=== PATIENT | male | born 1970 | race Caucasian/White ===

== ENCOUNTER 2024-10-08 14:36 | Emergency (ER) | payer OTHER, SELFPAY ==
[2024-10-08 14:37] VITALS: BP 125/90; PULSE 73; RESP 16; TEMP 36.4; O2SAT 100
[2024-10-08 14:44] VITALS: PULSE 75
[2024-10-08 14:45] VITALS: BP 137/87; PULSE 74; RESP 16
[2024-10-08 15:00] VITALS: BP 136/83; PULSE 71; RESP 20; O2SAT 100
--- NOTE | 2024-10-08 15:00 | ED.ARRPALP ---
HPI - Arrhythmia/Palpitations General Chief Complaint: Neuro Symptoms/Deficit Stated Complaint: Lips Tiggling/[place] Like Passing out Time Seen by Provider: 10/08/24 14:40 Source: patient Mode of arrival: ambulatory Limitations: no limitations History of Present Illness HPI narrative: 53-year-old male With history of hypertension, diabetes, high cholesterol presents with complaint of palpitations that started approximately 1 hour prior to arrival. Patient states that he is having intermittent lightheaded has constant feeling numbness and tingling to lower lip with numbness and tingling to right cheek. Patient reports history of AL approximately 15 years ago. Had stent placed for 100% blockage. 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 denies chest pain, shortness of breath. All systems reviewed and negative except as noted above. Related Data Home Medications ?Medication ?Instructions ?Recorded ?Confirmed ?Last Taken ?Type atorvastatin .ROUTE 10/08/24 Unknown History lisinopril 2.5 mg tablet mg 10/08/24 Unknown History metformin 500 mg tablet,extended mg PO 10/08/24 Unknown History release 24 hr metoprolol succinate 25 mg mg PO 10/08/24 Unknown History tablet,extended release 24 hr Allergies Allergy/AdvReac Type Severity Reaction Status Date / Time No Known Allergies Allergy Verified 10/08/24 14:51 Review of Systems Review of Systems: CONSTITUTIONAL: Denies fever, chills, or sweats. EYES: Denies visual changes, redness, or discharge. ENT: Denies rhinorrhea, congestion, sore throat, or otalgia. CARDIOVASCULAR: Denies chest pain . Reports palpitations . Denies edema. RESPIRATORY: Denies cough or dyspnea. GASTROINTESTINAL: Denies abdominal pain, nausea, vomiting, or diarrhea. GENITOURINARY: Denies dysuria or hematuria. SKIN: Denies rash or itching. MUSCULOSKELETAL: Denies back pain, joint pain, or myalgia. NEUROLOGIC: Denies headache, numbness, or weakness. reports lip and right cheek tingling/numbness. PSYCHIATRIC: Denies anxiety or depression. All other systems reviewed are negative, except as documented in HPI. PMFSH Comments At time of signature, agree with nursing past medical, surgical, social and family history. There is no relevant family history pertinent to the presenting complaint. Exam Narrative: GENERAL: This is a well-nourished, well-developed patient, in no apparent distress. HEAD: normocephalic, atraumatic. EYES: PERRL. Sclera clear/white. Vision is grossly intact. extraocular motions intact EARS: External ears normal NOSE: External nose normal NECK: Neck supple, non-tender without lymphadenopathy, masses or thyromegaly. CARDIOVASCULAR: Regular rate and rhythm without murmurs, gallops, or rubs. RESPIRATORY: Clear to auscultation. Breath sounds equal bilaterally. No wheezes, rales, or rhonchi. SKIN: warm, Dry, intact with no suspicious lesions or rash, good texture and turgor. NEURO: awake, alert, and oriented to person, place and time. There were no obvious focal neurologic abnormalities. normal speech. 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 EXTREMITIES: No joint tenderness, effusion, or edema noted. Course Course Level of Care: Express Care Visit Vital Signs Vital signs: Vital Signs Temperature 36.4 C 10/08/24 14:37 Pulse Rate 73 10/08/24 14:37 Respiratory Rate 16 10/08/24 14:37 Blood Pressure 125/90 10/08/24 14:37 Pulse Oximetry 100 10/08/24 14:37 Oxygen Delivery Room Air 10/08/24 14:37 Temperature 36.4 C 10/08/24 14:37 Pulse Rate 73 10/08/24 14:37 Respiratory Rate 16 10/08/24 14:37 Blood Pressure 125/90 10/08/24 14:37 Pulse Oximetry 100 10/08/24 14:37 Oxygen Delivery Room Air 10/08/24 14:37 reviewed Transfer Transfered to: [facility] Transportation: BLS Transfer rationale: palpitations, lip numbness, lightheaded. AL 15 yrs ago Accepting physician: MITRA Vazquez MDM - Arrhythmia/Palpitations MDM Narrative Medical decision making narrative: transferring patient to [facility] ER for further evaluation of his symptoms. Patient agrees with plan of care. Please be advised this is a medical document. It is intended for qxcs-ve-msmd communication. It is written in medical language and may contain unfamiliar abbreviations or verbiage. Medical documents are intended to carry relevant information, facts as evident, and the clinical opinion of the practitioner at the time of the encounter. This report may have been done utilizing a voice recognition system. Attempts have been made to correct errors. However, there may be uncorrected grammatical, spelling, and recognition errors present. The file time of this note does not necessarily represent the time of service. Discharge Plan Discharge Clinical Impression: Heart palpitations, Lip numbness Patient Disposition: Acute Care Hospital Condition: Stable Patient Language: Citizen Of [place] Prescriptions: No Action metoprolol succinate 25 mg tablet extended release 24 hr PO metformin 500 mg tablet extended release 24 hr PO lisinopril 2.5 mg tablet atorvastatin .ROUTE Follow-up/Referrals: UNKNOWN,DOCTOR [Primary Care Provider] - Time of Disposition: 15:00
--- NOTE | 2024-10-08 15:30 | ECG_ITS ---
Test Date: 2024-10-08 14:42:00 Measurements Intervals [place] Rate: 69 P: -2 ME: 167 QRS: -24 QRSD: 145 T: 8 QT: 407 QTc: 437 Interpretive Statements SINUS RHYTHM WITH OCCASIONAL VENTRICULAR PREMATURE COMPLEXES RIGHT BUNDLE BRANCH BLOCK INFERIOR INFARCT, AGE INDETERMINATE BASELINE ARTIFACT- I, II, III, AVR, AVL, AVF ABNORMAL ECG No previous ECG available for comparison Electronically Signed On 10-09-2024 09:17:17 CDT by Richy Cristina D.O.
--- OUTSIDE RECORDS SUMMARY | 2024-10-08 16:25 | XMS_ITS | Encounter Summary ---
Author Organization [facility] Address [address] [place] [address] Phone Care Team Providers Care Tank Setter Name Role Phone Slim Ordaz MD Primary Care Provider [phone] Encounter Details Date Type Department Care Team (Late st Contact Info) Description 08/28/2020 Telephone [facility] Cardiology [address] [facility] 8th [place] [address] [place] [id number] Nithin March MD [address] 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
--- OUTSIDE RECORDS SUMMARY | 2024-10-08 16:25 | XMS_ITS | Clinical Summary ---
Author Organization [facility] Address [address] [place] [address] Phone Care Team Providers Care Supervisor Film Processing Name Role Phone NATHAN ORDAZ MD Primary Care Provider [phone] ANGELINA Lopez, DARRELL Menard [phone] Reason for Visit and Chief Complaint referred by Dr. Ordaz, visit for: Lesion on scalp Plan of Treatment Excision under local anesthesia. PROCEDURE: The area is cleansed with hibiclens and localized with 3ml of 1% lidocaine with epinephrine. An oval incision made 1.7cm in width and 4.5cm in length and carried into the subcutaneous tissue. The lesion is removed completely and sent for pathology. The incision is closed with a running suture of 4-0 nylon. Neosporin ointment applied. The patient is given instructions for care and an appointment for 1 week for suture removal. - Last Documented On 10/19/2017 4:03PM ; [facility] Assessments Includes: Assessments from this encounter Findings Benign skin lesion right scalp. - Last Documented On 10/19/2017 4:03PM ; [facility] Medical Equipment - Implanted Devices Includes: Current Devices No Medical Equipment Recorded Medications Includes: Medications discussed during this encounter and other current Medications Current Medications (continue as prescribed) Metoprolol Succinate ER 25MG Oral Tablet Extended Release 24 Hour 08/02/2018 Provider: DARRELL ORDAZ M.D. Diagnosis: TAKE 1/2 TABLET BY MOUTH ONCE DAILY NEED OFFICE VISIT. Last Documented On 08/02/2018 1:48PM By NATHAN ORDAZ MD ; [facility] Lisinopril 2.5MG Oral Tablet 08/02/2018 Provider: DARRELL ORDAZ M.D. Diagnosis: TAKE 1 TABLET BY MOUTH ONCE DAILYNeed Office Vis it. Last Documented On 08/02/2018 4:34PM By NATHAN ORDAZ MD ; [facility] Atorvastatin Calcium 80MG Oral Tablet 08/02/2018 Pro vider: DARRELL ORDAZ M.D. Diagnosis: One tablet dailyNeed Office Visit. Last Documented On 08/02/2018 4:34PM By NATHAN ORDAZ MD ; [facility] Medications Administered Includes: Administered Medications from this encounter No Administered Medications Recorded Vital Signs Includes: Vital Signs from this encounter Vital Name 10/19/2017 03:24P Blood Pressure Sitting L 116/62 Pulse Rate-Sitting (bpm) 64 Respiration Rate (breaths/min) 20 Temp-Tympanic (F) 98 Height (in) 69 Weight (lb) 202 Body Mass Index (kg/m2) 29.8 Body Surface Area (m2) 2.1 Last Documented: On 10/19/2017 3:25PM ; [facility] Results Includes: Results discussed during this encounter No Results Recorded For Specified Dates History of Present Illness Includes: History of Present Illness from this encounter NOAH ORTEGA is a 46 year old male. Atypical mole growing on the right scalp. Occasionally gets irritated by his comb. Would like it removed. - Medication list reviewed. 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 Last Documented On 8 2:59PM ; [facility] Medical History Includes: Medical History addressed during this encounter Description Last Updated History of coronary artery disease 09/30 Last Documented On 8 2:59PM ; [facility] History of essential hypertension 2017 Last Documented On 8 2:59PM ; [facility] History of hyperlipidemia 09/30/2017 Last Documented On 8 2:59PM ; [facility] Family History Includes: Family History addressed during this encounter Description Last Updated Paternal history of coronary artery dise ase 09/30/2017 Last Documented On 8 2:59PM ; [facility] 4 children 09/30/2017 Last Documented On 8 2:59PM ; [facility] Maternal history of breast cancer Mother 09/30/2017 Last Documented On 8 2:59PM ; [facility] Paternal history of diabetes mellitus Fa ther-Alive 09/30/2017 Last Documented On 8 2:59PM ; [facility] Paternal history of heart disease Father -heart attack -alive 09/30/2017 Last Documented On 8 2:59PM ; [facility] Paternal history of stroke syndrome Gran dfather-stroke 09/30/2017 Last Documented On 8 2:59PM ; [facility] Review of Systems Includes: Review of Systems from this encounter No Review of Systems Recorded Mental Status Includes: Mental Status from this encounter No Mental Status Recorded Functional Status Includes: Functional Status from this encounter No Functional Status Recorded Physical Exam Includes: Physical Exam from this encounter Allergies Includes: Active Allergies No Known Allergies Encounters Encounter Provider Location Date Check-In Time Check-Out Time Diagnosis CONSULTATION MIRI MARKS DO [facility] 10/20/19 18 3:15PM 3:57PM Assessment [use For S.o.a.p. Note Free Text] Insurance Includes: Active Insurance Policies Plan Name Member ID Group # Subscriber Relationship Effect javid Dates 1 - [facility] [id number] NIK pearson Clinical Notes Includes: Clinical Notes from this encounter No Clinical Notes Recorded
--- OUTSIDE RECORDS SUMMARY | 2024-10-08 16:25 | XMS_ITS | Encounter Summary ---
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 Gender Identity Not on file Sexual Orientation Not on file documented as of this encounter Plan of Treatment Not on file documented as of this encounter Procedures Procedure Name Priority Date/Time Associated Diagnosis Comments SCAN - LABS 04/27/2020 documented in this encounter Results * SCAN - LABS (04/27/2020) us Provider Scanning Final Result documented in this encounter Visit Diagnoses Not on filedocumented in this encounter Care Teams Swabber Relationship Specialty Start Date End Date Slim Ordaz MD [address] [place] [id number] PCP - General Internal Medicine 08/22/18 documented as of this encounter
--- OUTSIDE RECORDS SUMMARY | 2024-10-08 16:26 | XMS_ITS | Encounter Summary ---
Author Organization [facility] Care Team Providers Care Hat Block Maker Name Role Phone Kilo Lozano MD Primary Care Provider [phone] Nithin March MD Unavailable [phone] Encounter Details Date Type Department Care Team (Latest Contact Info) Description 10/08/2024 Travel Social History Tobacco Use Types Packs/Day Years Used Date Smoking Tobacco: Never Smokeless Tobacco: Never Alcohol Use Standard Drinks/Week Comments Not Currently 0 (1 standard drink = 0.6 oz pur e alcohol) [facility] Utilities Answer Date Recorded In the past 12 months has [employer] electric, gas, oil, or water company threatened to shut off services in your home? Patient declined 12/22/2023 Social Connection and Isolation Panel [NHANES] A nswer Date Recorded In a typical week, how many times do you talk on the phone with family, friends, or neighbors? Patient declined 12/22/2023 How often do you get togethe r with friends or relatives? Patient declined 12/22/2023 How often do you attend scientologist or hoahaoism serv ices? Patient declined 12/22/2023 Do you belong to any clubs o r organizations such as scientologist groups, unions, fraternal or athletic groups, or school groups? Patient declined 12/22/2023 How often do you attend meet ings of the clubs or organizations you belong to? Patient declined 12/22/2023 Are you , , di vorced, , never , or living with a partner? Patient declined 12/22/2023 AUDIT-C Answer Date Recorded Q1: How often do you have a drink containing alc ohol? Patient declined 12/22/2023 Q2: How many drinks containi ng alcohol do you have on a typical day when you are drinking? Patient declined 12/22/2023 Q3: How often do you have si x or more drinks on one occasion? Patient declined 12/22/2023 Overall Financial Resource Strain (CARDIA) Answe r Date Recorded How hard is it for you to pa y for the very basics like food, housing, medical care, and heating? Hard 12/22/2023 PHQ-2 Answer Date Recorded Total Score - Questions 1-9 0 11/26 [facility] - Occupational Stress Questionnaire Answer Date Recorded Do you feel stress - tense, restless, nervous, or anxious, or unable to sleep at night because your mind is troubled all the time - these days? Patient declined 12/22/2023 Exercise Vital Sign Answer Date Recorde d On average, how many days pe r week do you engage in moderate to strenuous exercise (like a brisk walk)? Patient declined On average, how many minutes do you engage in exercise at this level? Patient declined 12/22/2023 Hunger Vital Sign Answer Date Recorded Within the past 12 months, y ou worried that your food would run out before you got the money to buy more. Patient declined Within the past 12 months, t he food you bought just didn't last and you didn't have money to get more. Patient declined PRAPARE - Transportation Answer Date Re corded In the past 12 months, has l ack of transportation kept you from medical appointments or from getting medications? Patient declined 12/22/2023 In the past 12 months, has l ack of transportation kept you from meetings, work, or from getting things needed for daily living? Patient declined 12/22/2023 Housing Stability Vital Sign Answer Abdulkadir e Recorded In the last 12 months, was t here a time when you were not able to pay the mortgage or rent on time? Patient declined 12/22/19 24 Number of Times Moved in the Last Year Not on fi le 12/22/2023 At any time in the past 12 m [place], were you homeless or living in a nursing home (including now)? Patient declined 12/22/2023 Education Answer Date Recorded What is the highest level of school you have completed or the highest degree you have received? Bachelor's degree (e.g., BA, AB, BS) 12/10/2022 Sex and Gender Information Value Date Recorded Sex Assigned at Not on file Legal Sex Male 5:38 PM CDT Gender Identity Not on file Sexual Orientation Not on file documented as of this encounter Plan of Treatment Upcoming Encounters Date Type Department Care Team (Late st Contact Info) Description 12/24/2024 4:15 PM CDT Office Visit [facility] - [place] [address] [place] [address] Kilo Lozano MD [address] [place] [address] documented as of this encounter Visit Diagnoses Not on filedocumented in this encounter Additional Health Concerns Assessment Noted Time PHQ-9 Depression Total Score: 0 12/23/19 24 4:22 PM CDT documented as of this encounter Care Teams Hat Block Maker Relationship Specialty Start Date End Date Kilo Lozano MD [address] [place] [address] PCP - General Internal Medicine 03/23/21 Nithin March MD [address] [place] [address] Consulting Physician Cardiovascular Disease - Cardiology 03/23/21 documented as of this encounter
--- OUTSIDE RECORDS SUMMARY | 2024-10-08 16:26 | XMS_ITS | Clinical Summary ---
Author Organization [facility] Address [address] [place] [address] Care Team Providers Care Tumbler Tender Name Role Phone Slim Ordaz MD Primary Care Provider [phone] Allergies No known active allergies Medications coenzyme Q10 100 mg capsule Take 100 mg by mouth daily. Active esomeprazole DR (NexIUM) 20 mg capsule Take 20 mg by mouth daily before breakfast. Active aspirin 81 mg chewable tablet Take 81 mg by mouth daily. Active atorvastatin (LIPITOR) 80 mg tablet Take 1 tablet (80 mg total) by mouth daily 90 tablet 3 01/11/2022 Active lisinopriL (PRINIVIL,ZESTRI L) 2.5 mg tablet Take 1 tablet (2.5 mg total) by mouth daily 90 tablet 3 01/11/2022 Active metoprolol XL (TOPROL-XL) 25 mg extended release tablet Take 1 tablet (25 mg total) by mouth daily 90 tablet 3 01/11/2022 Active Active Problems Problem Noted Date Diagnosed Date Coronary artery disease invo lving sioux coronary artery of sioux heart without angina pectoris 09/01/2020 Cardiomyopathy, ischemic 09/01/2020 Hypertension 09/01/2020 Hyperlipidemia 09/01/2020 Family History Medical History Relation Name Comments Heart attack Father Relation Name Status Comments Father Social History Tobacco Use Types Packs/Day Years Used Date Smoking Tobacco: Never Smokeless Tobacco: Never Personal Safety Answer Date Recorded Getting School Help Needed Not on file 09/10 Sex and Gender Information Value Date Recorded Sex Assigned at Not on file 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 Gender Identity Not on file Sexual Orientation Not on file Obstetrics History Last Filed Vital Signs Vital Sign Reading Time Taken Comments Blood Pressure 107/62 10/25/2021 3:30 PM CDT Pulse 66 10/25/2021 3:30 PM CDT Temperature 36.4 C (97.5 F) 10/25/2021 12:38 PM CDT Respiratory Rate 19 10/25/2021 3:30 PM CDT Oxygen Saturation 100% 10/25/2021 3:30 PM CDT Inhaled Oxygen Concentration - - Weight 77.1 kg (170 lb) 11/24/2021 3:29 PM CDT Height 175.3 cm (5' 9 ) 11/24/2021 3:29 PM CDT Body Mass Index 25.1 11/24/2021 3:29 PM CDT Plan of Treatment Health Maintenance Due Date Last Done Comments Albumin Creatinine Ratio, Urine 1971 Colon Cancer Screening-Colonoscopy 1971 Depression Screening 1971 Hemoglobin A1C 1971 Hepatitis C Screening 1971 Prostate Cancer Screening-PSA 1971 Dilated Eye Exam 1971 Foot Exam 1971 DTaP/Tdap/Td Vaccine (1 - Tdap) 10/21/1982 Hepatitis B Screening 10/21/1989 Regular Well Visit/Exam 18-64 10/21/1989 Pneumococcal vaccine <65 (1 of 2 - PCV) 10/21/1990 Zoster Vaccine (1 of 2) 10/21/2021 eGFR 10/25/2022 10/25/2021 Covid-19 Vaccine ( season) 02/26/202402/2021, 03/07/2021 Lipid Panel 12/25/2024 12/26/2023 Influenza Vaccine (Season Ended) 2025 Procedures Procedure Name Priority Date/Time Associated Diagnosis Comments EGFR STAT 10/25/2021 2:14 PM CDT from Last 3 Months or Most Recently Relevant to Health Maintenance Results * eGFR (10/25/2021 2:14 PM CDT) eGFR 110 mL/min/1. 73 m2 ALEJANDRO GRIFFITH (ANNMARIE) Comment: Interpretive Data Reference Interval Normal >/= 90 mL/min/1.73m2 Mildly decreased* 60 - 89 mL/min/1.73m2 Mildly to moderately decreased 45 - 59 mL/min/1.73m2 Moderately to severely decreased 30 - 44 mL/min/1.73m2 Severely decreased 15 - 29 mL/min/1.73m2 Kidney Failure < 15 mL/min/1.73m2 *Relative to young adult level Estimated glomerular filtration rate is determined by the 2020 CKD-EPI equation recommended by the National Kidney Foundation (A Unifying Approach to GFR Estimation: Recommendations of the NKF-ASK Task Force on Reassessing the Inclusion of Race in Diagnosing Kidney Disease, JASN 2020). The CKD-EPI equation should not be used for patients with unstable renal function and has not been validated in children and those over 70. Current interpretive data was last reviewed 2021. Blood 10/25/2021 2:14 PM CDT 10/25/2021 2:21 PM CDT us Severo Gregorio MD LAB BLOOD ORDERABLES Final Result [facility] ([facility]) [facility] Department [place] [address] from Last 3 Months or Most Recently Relevant to Health Maintenance Care Teams Tumbler Tender Relationship Specialty Start Date End Date Slim Ordaz MD [address] [place] [id number] PCP - General Internal Medicine 08/22/18
--- OUTSIDE RECORDS SUMMARY | 2024-10-08 16:26 | XMS_ITS | Encounter Summary ---
Author Organization [facility] Address [address] [place] [address] Phone Care Team Providers Care Hand Screen Printer Name Role Phone Kilo Lozano MD Primary Care Provider [phone] Nithin March MD Unavailable [phone] Reason for Visit * Reason Comments Medication Refill Encounter Details Date Type Department Care Team (Late st Contact Info) Description 12/01[facility]2023 [facility] [place] [address] [place] [address] Kilo Lozano MD [address] [place] [address] Medication Refill Social History Tobacco Use Types Packs/Day Years Used Date Smoking Tobacco: Never Smokeless Tobacco: Never Alcohol Use Standard Drinks/Week Comments Not Currently 0 (1 standard drink = 0.6 oz pur e alcohol) PHQ-2 Answer Date Recorded Total Score - Questions 1-9 0 02/26 Education Answer Date Recorded What is the highest level of school you have completed or the highest degree you have received? Bachelor's degree (e.g., BA, AB, BS) 12/10/2022 Sex and Gender Information Value Date Recorded Sex Assigned at Not on file Legal Sex Male 5:38 PM CDT Gender Identity Not on file Sexual Orientation Not on file documented as of this encounter Miscellaneous Notes * Telephone Encounter - Krishna Arechiga RN - 12/01/2023 8:16 AM CDT Medication(s) refilled and signed per [facility] Chronic Medication Refill Standing Order for Pediatricand Adult Patients. Requested Prescriptions Pending Prescriptions Disp Refills lisinopril (PRINIVIL, ZESTRIL) 2.5 MG Tablet [Pharmacy Med Name: Lisinopril 2.5 MG Oral Tablet] 90 Tablet 0 Sig: Take 1 tablet by mouth once daily ADRIANA Inhibitors Protocol Passed - 12/01/2023 6:14 AM Passed - Serum potassium on record in past 12 months POTASSIUM Date Value Ref Range Status 12/20/2022 3.9 3.5 - 5.1 mmol/L Final Passed - Blood pressure on record in past 12 months Clinician-entered: BP Readings from Last 3 Encounters: 12/17/22 110/70 03/23/21 100/70 Patient-entered: No data recorded Passed - Visit with relevant provider in past 12 months or upcoming 90 days Recent Visits Date Type Provider Dept 12/17/22 Office Visit Kilo Lozano MD [facility] Showing recent visits within past 365 days and meeting all other requirements Future Appointments Date Type Provider Dept 12/23/23 Appointment Kilo Lozano MD [facility] Showing future appointments within next 90 days and meeting all other requirements Passed - GFR on record in past 12 months GFR, EST. NONAFRICAN Date Value Ref Range Status 12/20/2022 >60 >=60 Final atorvastatin (LIPITOR) 80 MG Tablet [Pharmacy Med Name: Atorvastatin Calcium 80 MG Oral Tablet] 90 Tablet 0 Sig: Take 1 tablet by mouth once daily Hmg CoA Reductase Inhibitors Protocol Passed - 12/01/2023 6:14 AM Passed - Visit with relevant provider in past 12 months or upcoming 90 days Recent Visits Date Type Provider Dept 12/17/22 Office Visit Kilo Lozano MD [facility] Showing recent visits within past 365 days and meeting all other requirements Future Appointments Date Type Provider Dept 12/23/23 Appointment Kilo Lozano MD [facility] Showing future appointments within next 90 days and meeting all other requirements Passed - Lipid panel in past 12 months LDL Date Value Ref Range Status 12/20/2022 Final Comment: Unable to calculate LDL when Triglycerides are greater than 400. Direct measurement of LDL is available upon request as a separate test. HDL CHOLESTEROL Date Value Ref Range Status 12/20/2022 36.3 (L) >40 mg/dL Final CHOLESTEROL Date Value Ref Range Status 12/20/2022 230 (H) <=200 mg/dL Final TRIGLYCERIDES Date Value Ref Range Status 12/20/2022 416 (H) <150 mg/dL Final VLDL Date Value Ref Range Status 12/20/2022 Final Comment: Cannot be calculated due to Hypertriglyceridemia. CHOL/HDL RATIO Date Value Ref Range Status 12/20/2022 6.3 (H) 0.0 - 4.4 Final NON-HDL CHOLESTEROL Date Value Ref Range Status 12/20/2022 193.7 (H) <130 mg/dL Final Passed - CMP in past 12 months SODIUM Date Value Ref Range Status 12/20/2022 138 136 - 144 mmol/L Final POTASSIUM Date Value Ref Range Status 12/20/2022 3.9 3.5 - 5.1 mmol/L Final CHLORIDE Date Value Ref Range Status 12/20/2022 102 100 - 110 mmol/L Final CO2, VENOUS Date Value Ref Range Status 12/20/2022 26 22 - 32 mmol/L Final ANION GAP Date Value Ref Range Status 12/20/2022 13.9 8.0 - 20.0 mmol/L Final GLUCOSE Date Value Ref Range Status 12/20/2022 89 70 - 99 mg/dL Final BUN Date Value Ref Range Status 12/20/2022 12 6 - 20 mg/dL Final CREATININE, BLOOD Date Value Ref Range Status 12/20/2022 0.83 0.80 - 1.30 mg/dL Final BUN/CREATININE RATIO Date Value Ref Range Status 12/20/2022 14 12 - 20 ratio Final TOTAL PROTEIN Date Value Ref Range Status 12/20/2022 6.7 6.0 - 8.3 g/dL Final ALBUMIN Date Value Ref Range Status 12/20/2022 4.5 3.5 - 5.2 g/dL Final Comment: The colormetric methods used for the determination of Albumin may lead to falsely elevated test results in patients suffering from renal failure or insufficiency due to interference with other proteins. A/G RATIO Date Value Ref Range Status 12/20/2022 2.0 1.0 - 2.0 Final CALCIUM Date Value Ref Range Status 12/20/2022 9.0 8.9 - 10.3 mg/dL Final T BILI Date Value Ref Range Status 12/20/2022 0.7 <=1.2 mg/dL Final SGOT (AST) Date Value Ref Range Status 12/20/2022 28 <=40 U/L Final SGPT (ALT) Date Value Ref Range Status 12/20/2022 47 (H) <=41 U/L Final ALKALINE PHOSPHATASE Date Value Ref Range Status 12/20/2022 65 40 - 130 U/L Final GFR, EST. NONAFRICAN Date Value Ref Range Status 12/20/2022 >60 >=60 Final GFR, EST. Date Value Ref Range Status 12/20/2022 >60 >=60 Final GFR, ESTIMATED Date Value Ref Range Status 12/20/2022 >60 >=60 Final Comment: Creatinine Clearance is the preferred criteria for selecting drug dose adjustments in renally impaired patients. The GFR is provided as additional pertinent clinical information. GFR is reported in mL/min/1.73 sq m. Calculation based on the Chronic Kidney Disease Epidemiology Collaboration (CKD- EPI) equation refitwithout adjustment for race. IS THE PATIENT REQUIRED TO BE FASTING? 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
--- OUTSIDE RECORDS SUMMARY | 2024-10-08 16:26 | XMS_ITS | Encounter Summary ---
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 Gender Identity Not on file Sexual Orientation Not on file documented as of this encounter Plan of Treatment Not on file documented as of this encounter Procedures Procedure Name Priority Date/Time Associated Diagnosis Comments CARDIOLOGY DOCUMENT SCAN 08/22/2018 documented in this encounter Results * SCAN - CARDIOLOGY (08/22/2018) Anatomical Region Laterality Modality Other us Provider Scanning CV CARDIAC SERVICES PROCEDURES Final Result documented in this encounter Visit Diagnoses Not on filedocumented in this encounter Care Teams Tracer Lathe Set Up Operator Relationship Specialty Start Date End Date Slim Ordaz MD [address] [place] [id number] PCP - General Internal Medicine 08/22/18 documented as of this encounter
--- OUTSIDE RECORDS SUMMARY | 2024-10-08 16:26 | XMS_ITS ---
Author Organization [facility] Address [address] [place] [address] Phone Care Team Providers Care Applications Engineer Name Role Phone NATHAN ALFARO MD Primary Care Provider [phone] ANG[address] Lopez, DARRELL Menard [phone] Plan of Treatment Findings Encounter Date Excision under local anesthe joanne. PROCEDURE: The area is cleansed with hibiclens [...] an appointment for 1 week for suture removal CONSULTATION with MIRI MARKS DO 10/19/2017 Last Documented On 8 4:03PM ; [facility] Continue current medication NEW PATIENT VISIT wi DARRELL ALFARO M.D. 09/30/2017 Last Documented On 8 3:57PM ; [facility] Ordered patient to call if noelle hodgson develops NEW PATIENT VISIT with DARRELL ALFARO M.D. 09/30/2017 Last Documented On 8 3:57PM ; [facility] Ordered return to the clinic if condition worsens or new symptoms arise NEW PATIENT VISIT with DARRELL ALFARO M.D. 09/30/2017 Last Documented On 8 3:57PM ; [facility] Plan - start medication román ve as needed NEW PATIENT VISIT with DARRELL ALFARO M.D. 09/30/2017 Last Documented On 8 3:57PM ; [facility] Referrals To Diagnosis Autographer [facility] [address] [address] - Athscl heart disease of [place] coronary artery w/o ang pctrs Note: Shelby Last Documented On 8 12:15PM ; [facility] General Surgery MIRI MARKS DO Neoplasm of un certain behavior of skin Note: DR Marks for skin l esion removal Last Documented On 8 4:06PM ; [facility] Assessments Includes: Assessments for all patient encounters Findings Encounter Date Benign skin lesion right scalp CONSULTATION with MIRI MARKS DO 10/19/2017 Last Documented On 8 4:03PM ; [facility] Coronary artery disease NEW PATIENT VISIT with Sejal ALFARO M.D. 09/30/2017 Last Documented On 8 3:57PM ; [facility] Episodic tension-type headac he, without intractable headache NEW PATIENT VISIT with DARRELL ALFARO M.D. 09/30/2017 Last Documented On 8 3:57PM ; [facility] Essential hypertension NEW PATIENT VISIT with TAMMY ALFARO M.D. 09/30/2017 Last Documented On 8 3:57PM ; [facility] Hyperlipidemia NEW PATIENT VISIT with DARRELL ALFARO M.D. 09/30/2017 Last Documented On 8 3:57PM ; [facility] Medical Equipment - Implanted Devices Includes: Current and historical Devices No Medical Equipment Recorded Medications Includes: Current and historical Medications Current Medications (continue as prescribed) Metoprolol Succinate ER 25MG Oral Tablet Extended Release 24 Hour 08/02/2018 Provider: DARRELL ALFARO M.D. Diagnosis: TAKE 1/2 TABLET BY MOUTH ONCE DAILY NEED OFFICE VISIT. Last Documented On 08/02/2018 1:48PM By NATHAN ALFARO MD ; [facility] Lisinopril 2.5MG Oral Tablet 08/02/2018 Provider: DARRELL ALFARO M.D. Diagnosis: TAKE 1 TABLET BY MOUTH ONCE DAILYNeed Office Vis it. Last Documented On 08/02/2018 4:34PM By NATHAN ALFARO MD ; [facility] Atorvastatin Calcium 80MG Oral Tablet 08/02/2018 Pro vider: DARRELL ALFARO M.D. Diagnosis: One tablet dailyNeed Office Visit. Last Documented On 08/02/2018 4:34PM By NATHAN ALFARO MD ; [facility] Past Medications on file Metoprolol Succinate ER 25MG Oral Tablet, extended-release 24 hour 07/05/2018 - 08/02/2018 Provider: DARRELL ALFARO M.D. Diagnosis: TAKE 1/2 TABLET BY MOUTH ONCE DAILYNeed Office V isit. Last Documented On 08/02/2018 1:36PM By NATHAN ALFARO MD ; [facility] Lisinopril 2.5MG Oral Tablet 07/03/2018 - 08/02/2018 P rovider: DARRELL ALFARO M.D. Diagnosis: TAKE 1 TABLET BY MOUTH ONCE DAILYNeed Office Vis it. Last Documented On 08/02/2018 4:20PM By NATHAN ALFARO MD ; [facility] Lisinopril 2.5MG Oral Tablet 06/01/2018 - 07/03/2018 P rovider: DARRELL ALFARO M.D. Diagnosis: TAKE 1 TABLET BY MOUTH ONCE DAILYNeed Office Vis it. Last Documented On 07/03/2018 2:23PM By NATHAN ALFARO MD ; [facility] Metoprolol Succinate ER 25MG Oral Tablet Extended Release 24 Hour 05/30/2018 - 07/05/2018 Provider: DARRELL ALFARO M.D. Diagnosis: TAKE 1/2 TABLET BY MOUTH ONCE DAILYNeed Office V isit. Last Documented On 07/05/2018 8:55AM By NATHAN ALFARO MD ; [facility] Metoprolol Succinate ER 25MG Oral Tablet, extended-release 24 hour 04/27/2018 - 05/30/2018 Provider: DARRELL ALFARO M.D. Diagnosis: TAKE 1/2 TABLET BY MOUTH ONCE DAILYNeed Office V isit. Last Documented On 05/30/2018 9:02AM By NATHAN ALFARO MD ; [facility] Atorvastatin Calcium 80MG Or al Tablet 04/27/2018 - 08/02/2018 Provider: DARRELL ALFARO M.D. Diagnosis: One tablet dailyNeed Office Visit. Last Documented On 08/02/2018 4:20PM By NATHAN ALFARO MD ; [facility] Lisinopril 2.5MG Oral Tablet 03/23/2018 - 06/01/2018 P rovider: DARRELL ALFARO M.D. Diagnosis: TAKE 1 TABLET BY MOUTH ONCE DAILY NEED OFFICE SIT. Last Documented On 06/01/2018 8:56AM By NATHAN ALFARO MD ; [facility] Lisinopril 2.5MG Oral Tablet 02/22/2018 - 03/23/2018 P rovider: DARRELL ALFARO M.D. Diagnosis: TAKE 1 TABLET BY MOUTH ONCE DAILYNeed Office Vis it. Last Documented On 03/23/2018 8:52AM By NATHAN ALFARO MD ; [facility] Metoprolol Succinate ER 25MG Oral Tablet Extended Release 24 Hour 02/22/2018 - 04/27/2018 Provider: DARRELL ALFARO M.D. Diagnosis: TAKE 1/2 TABLET BY MOUTH ONCE DAILY Last Documented On 04/27/2018 8:53AM By NATHAN ALFARO MD ; [facility] Atorvastatin Calcium 80MG Or al Tablet 01/23/2018 - 04/27/2018 Provider: DARRELL ALFARO M.D. Diagnosis: One tablet daily Last Documented On 04/27/2018 8:52AM By NATHAN ALFARO MD ; [facility] Lisinopril 2.5MG Oral Tablet 01/20/2018 - 02/22/2018 P rovider: DARRELL ALFARO M.D. Diagnosis: One tablet dailyNeed Office Visit. Last Documented On 02/22/2018 11:28AM By NATHAN ALFARO MD ; [facility] Lisinopril 2.5MG Oral Tablet 12/20/2017 - 01/20/2018 P rovider: DARRELL ALFARO M.D. Diagnosis: One tablet daily Last Documented On 01/20/2018 3:15PM By NATHAN ALFARO MD ; [facility] Lisinopril 2.5MG Oral Tablet 11/18/2017 - 12/20/2017 P mayavider: DARRELL ALFARO M.D. Diagnosis: One tablet daily Last Documented On 12/20/2017 8:56AM By NATHAN ALFARO MD ; [facility] Metoprolol Tartrate 25MG Oral Tablet 09/30/2017 - 12/2018 Provider: Diagnosis: Last Documented On 08/03/2018 2:14PM By Kathie YIP ; [facility] Lisinopril 2.5MG Oral Tablet 09/30/2017 - 11/18/2017 P rovider: Diagnosis: Last Documented On 11/18/2017 1:15PM By Kathie YIP ; [facility] Atorvastatin Calcium 80MG Oral Tablet 09/30/2017 - 12/2018 Provider: Diagnosis: Last Documented On 08/03/2018 2:15PM By Kathie YIP ; [facility] Medications Administered Includes: Administered Medications in patient's chart No Administered Medications Recorded Results Includes: Results from 10/09/2023 through 10/08/2024 No Results Recorded For Specified Dates History of Present Illness History of Present Illness not supported for this document type No History of Present Illness Recorded Social History Description Last Updated Smoking status : Never smoker 10/19/2017 Last Documented On 8 4:03PM ; [facility] Currently 09/30/2017 Last Documented On 8 3:57PM ; [facility] No tobacco use 09/30/2017 Last Documented On 8 3:57PM ; [facility] Not using alcohol 09/30/2017 Last Documented On 8 3:57PM ; [facility] Not using drugs 09/30/2017 Last Documented On 8 3:57PM ; [facility]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 Last Documented On 8 3:57PM ; [facility] Medical History Includes: Medical History in patient's chart Description Last Updated History of coronary artery disease 09/30 Last Documented On 8 3:57PM ; [facility] History of essential hypertension 2017 Last Documented On 8 3:57PM ; [facility] History of hyperlipidemia 09/30/2017 Last Documented On 8 3:57PM ; [facility] Family History Includes: Family History in patient's chart Description Last Updated Paternal history of coronary artery dise ase 09/30/2017 Last Documented On 8 3:57PM ; [facility] 4 children 09/30/2017 Last Documented On 8 3:57PM ; [facility] Maternal history of breast cancer Mother 09/30/2017 Last Documented On 8 3:57PM ; [facility] Paternal history of diabetes mellitus Fa ther-Alive 09/30/2017 Last Documented On 8 3:57PM ; [facility] Paternal history of heart disease Father -heart attack -alive 09/30/2017 Last Documented On 8 3:57PM ; [facility] Paternal history of stroke syndrome Gran dfather-stroke 09/30/2017 Last Documented On 8 3:57PM ; [facility] Review of Systems Review of Systems not supported for this document type No Review of Systems Recorded Mental Status No Mental Status Recorded Functional Status No Functional Status Recorded Physical Exam Physical Exam not supported for this document type No Physical Exam Recorded Allergies Includes: Active, inactive, and resolved Allergies No Known Allergies Insurance Includes: Active Insurance Policies Plan Name Member ID Group # Subscriber Relationship Effect javid Dates 1 - [facility] [id number] NIK pearson Clinical Notes Includes: Signed Clinical Notes starting from 07/16/2022 No Clinical Notes Recorded
--- OUTSIDE RECORDS SUMMARY | 2024-10-08 16:26 | XMS_ITS | Clinical Summary ---
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 Active aspirin 81 MG Chewable Tablet Take 81 mg by mouth daily. Active esomeprazole (NexIUM) 20 MG CAPSULE DELAYED RELEASEIndicatio ns:Gastroesophag eal reflux disease without esophagitis Take 1 Capsule by mouth daily. 90 Capsule 3 4 Active metFORMIN (GLUCOPHAGE-XR) 500 MG TABLET SR 24 HRIndications:Ty pe 2 diabetes mellitus without complication, without long-term current use of insulin Take 1 Tablet by mouth daily. This RX is for Metformin SR. 90 Tablet 3 4 Active lisinopril (PRINIVIL, ZESTRIL) 2.5 MG TabletIndication s:Hypertension, essential Take 1 tablet by mouth once daily 90 Tablet 3 4 Active atorvastatin (LIPITOR) 80 MG TabletIndication s:Mixed hyperlipidemia,C oronary artery disease involving rampart coronary artery of rampart heart without angina pectoris Take 1 tablet by mouth once daily 90 Tablet 3 4 Active metoprolol Succinate (TOPROL-XL) 25 MG TABLET SR 24 HRIndications:Hy pertension, essential Take 1/2 (one-half) tablet by mouth once daily 45 Tablet 2 4 Active Active Problems Problem Noted Date Diagnosed Date Type 2 diabetes mellitus wit hout complication, without long-term current use of insulin 12/28/2023 Gastroesophageal reflux disease without esophagi tis 03/23/2021 Hypertension, essential 09/01/2020 Mixed hyperlipidemia 09/01/2020 Overview (03/23/2021): 11/22/2014 OE=220 PB=831 HDL=32 LDL=45 04/11/2012 FLP PK=964 KR=437 HDL=50 LDL=91 10/18/2011 FLP- NV=522 WE=653 HDL=34 LDL-unable to be calculated 10/26/2009 FLP- IR=936 OZ=892 HDL=30 LDL=90 Last Assessment & Plan: His lipids are well controlled. We stopped Fenofibrate, and increased Atorvastatin to 80mg PO QD per the recent guidelines. He tolerates this very well, with no apparent side effects or complications. - Continue current management - FLP, CMP Coronary artery disease invo lving rampart coronary artery of rampart heart without angina pectoris 09/01/2020 Overview (03/23/2021): 11/19/2015 EKG- NSR, RBBB, inferior RI, 83bpm 05/13/2014 EKG- NSR, RBBB, inferior RI 04/11/2012 FLP YK=161 RA=748 HDL=50 LDL=91 03/28/2012 Exercise / SPECT- Denny protocol. Exercised 9' 45 . Max HR 169 bpm (100% PMHR 180 bpm). EF > 60%. Abnormal study. Moderate area of inferior infarct with very vijay-infarct ischemia 10/18/2011 FLP- GP=460 DI=622 HDL=34 LDL-unable to be calculated 10/02/2010 Echo- EF~50-60%, tr TR 12/01/2009 Echo-EF 45-55%, Left ventricular systolic function mildly reduced, Regional wall abnormalities cannot be excluded due to visualization 10/26/2009 Hqgx-QS-vdsw ventricular 45-50%, 1+ mild mitral regurgitation, 1+ mild tricuspid regurgitation, Inferior vena cava dilated, Left ventricular EF mildly reduced with hypokinesis of basal and mid inferior wall 10/26/2009 FLP- DW=914 SA=797 HDL=30 LDL=90 10/25/2009 Cath- LM-nl, LAD-nl, LCx-nl, RCA-100%- PCI-RCA KARINA Last Assessment & Plan: Mr. Acuna has a h/o CAD. He had an STEMI back in October of 2009. At that time, he was found to have a 100% occluded right coronary artery. This was stented utilizing a single Xience drug-eluting stent. Initially, his EF was found to be slightly diminished at between 45 and 50%. According to 03/2012 SPECT, his EF seemed to have normalized. He has been doing very well, denying any CP, SOB, JAIN, orthopnea. He has been relatively sedentary lately. He is now planning to move to [place], [place]. - Continue current management - Continue aggressive risk factor modification - f/u with Cardiology upon arrival to [place], [place]. Cardiomyopathy, ischemic 09/01/2020 Encounters Date Type Department Care Team Description 10/08/2024 3:42 PM CDT - Present Emergency [facility] Emergency [address] [place] [address] Zion Canseco, ALANA 10/08/2024 Travel from Last 3 Months Immunizations Immunization Administration Dates Next Due Covid-19, Mrna, Lnp-s, Pf, 30 Mcg/0.3 Ml Dose (Merline hillman) 03/07/2021 Family History Medical History Relation Name Comments Heart Attack Father Cancer Mother Breast Cancer Sister Breast Relation Name Status Comments Father Mother Sister Social History Tobacco Use Types Packs/Day Years Used Date Smoking Tobacco: Never Smokeless Tobacco: Never Tobacco Cessation:Counseling Given: Not Answered Alcohol Use Standard Drinks/Week Comments Not Currently 0 (1 standard drink = 0.6 oz pur e alcohol) [facility] Utilities Answer Date Recorded In the past 12 months has e Issue, gas, oil, or water [employer] threatened to shut off services in your home? Patient declined 12/22/2023 Social Connection and Isolation Panel [NHANES] A nswer Date Recorded In a typical week, how many times do you talk on the phone with family, friends, or neighbors? Patient declined 12/22/2023 How often do you get togethe r with friends or relatives? Patient declined 12/22/2023 How often do you attend sabianist or orthodoxy serv ices? Patient declined 12/22/2023 Do you belong to any clubs o r organizations such as sabianist groups, unions, fraternal or athletic groups, or [...] Total Score - Questions 1-9 0 11/26 [facility] - Occupational Stress [...] any time in the past 12 m [facility], were you homeless or living in a long-term (including now)? Patient declined 12/22/2023 Education Answer Date Recorded What is the highest level of school you have completed or the highest degree you have received? Bachelor's degree (e.g., BA, AB, BS) 12/10/2022 Sex and Gender Information Value Date Recorded Sex Assigned at Not on file Legal Sex Male 5:38 PM CDT Gender Identity Not on file Sexual Orientation Not on file Last Filed Vital Signs Vital Sign Reading Time Taken Comments Blood Pressure 149/87 10/08/2024 3:51 PM CDT Pulse 77 10/08/2024 3:51 PM CDT Temperature 36.6 C (97.8 F) 10/08/2024 3:51 PM CDT Respiratory Rate 20 10/08/2024 3:51 PM CDT Oxygen Saturation 99% 10/08/2024 3:51 PM CDT Inhaled Oxygen Concentration - - Weight 83.9 kg (185 lb) 10/08/2024 3:51 PM CDT Height 177.8 cm (5' 10 ) 10/08/2024 3:51 PM CDT Body Mass Index 26.54 10/08/2024 3:51 PM CDT Plan of Treatment Upcoming Encounters Date Type Department Care Team (Late st Contact Info) Description 12/24/2024 4:15 PM CDT Office Visit [facility] - Primary Care - [place] [address] [place] [address] Kilo Lozano MD [address] [place] [address] Health Maintenance Due Date Last Done Comments Diabetes: Eye Exam 1971 Diabetes: Foot Exam 1971 TdaP Immunization 1971 Hepatitis B Immunization (1 of 3 - 19+ 3-dose series) 10/21/1990 Pneumococcal Immunization (5 0+ years) (1 of 2 - PCV) 10/21/1990 Colonoscopy 10/21/2016 Immunochemical Fecal Occult Blood 10/21/2021 Zoster Immunization (1 of 2) 10/21/2021 SARS-COV-2 Immunization (3 - season) 2024 04/04/2021, 03/07/2021 Diabetes: Hemoglobin A1c 06/27/2024 12/26/2023 Diabetes: Nephropathy Screening 12/25/2024 12/26/2023, 12/20/2022 Influenza Immunization (Seas on Ended) 2025 Cologuard 01/18/2027 01/19/2024 Colorectal Cancer Screening 01/18/2027 Respiratory Syncytial Virus (RSV) Immunization (Adult) (1 - 1-dose 75+ series) 10/21/2046 Hepatitis C Virus (HCV) Screening Completed 12/26/2023 Meningococcal Immunization (ACWY) Aged Out No longer eligible b ased on patient's age to complete this topic Rotavirus Immunization Aged Out No lo nger eligible based on patient's age to complete this topic Procedures * The patient is currently admitted. The information in this section might not be complete until the patient is discharged. Procedure Name Priority Date/Time Associated Diagnosis Comments COLOGUARD Routine 01/19/2024 8:00 PM CDT Screening for colon cancer CMP (COMPREHENSIVE METABOLIC PANEL) Today 12/26/2023 4:42 PM CDT Encounter for health maintenance examination (Adult) Hypertension, essential HEMOGLOBIN A1C W/ ESTIMATED GLUCOSE Routine 12/26/2023 4:42 PM CDT Hyperglycemia HEPATITIS C ANTIBODY Routine 12/26/2023 4:42 PM CDT Encounter for hepatitis C screening test for low risk patient from Last 3 Months or Most Recently Relevant to Health Maintenance Results * COLOGUARD (01/19/2024 8:00 PM CDT) Cologuard Negative Negative [facility] Comment: NEGATIVE TEST RESULT. A negative Cologuard result indicates a low likelihood that a colorectal cancer (CRC) or advanced adenoma (adenomatous polyps with more advanced pre-malignant features) is present. The chance that a person with a negative Cologuard test has a colorectal cancer is less than 1 in 1500 (negative predictive value >99.9%) or has an advanced adenoma is less than 5.3% (negative predictive value 94.7%). These data are based on a prospective cross-sectional study of 10,000 individuals at average risk for colorectal cancer who were screened with both Cologuard and colonoscopy. (Mary Davison al, N Engl J Med 2014;370(14):3535-3883) The normal value (reference range) for this assay is negative. COLOGUARD RE-SCREENING RECOMMENDATION: Periodic colorectal cancer screening is an important part of preventive healthcare for asymptomatic individuals at average risk for colorectal cancer. Following a negative Cologuard result, the [place] Cancer Society and U.S. Multi-Society Task Force screening guidelines recommend a Cologuard re-screening interval of 3 years. References: [place] [employer] Guideline for Colorectal Cancer Screening: https://www.cancer.org/cancer/btgph-aibuth-gfieyl/alhalqbeo-telnywkts-eymvhzo/ acs-recommendations.html.; Romario DK, Bella CR, Flaquita SandhuK, Colorectal Cancer Screening: Recommendations for Physicians and Patients from the U.S. Multi-Society Task Force on Colorectal Cancer Screening , Am J Gastroenterology 2017; 112:9807-4830. TEST DESCRIPTION: Composite algorithmic analysis of stool DNA-biomarkers with hemoglobin immunoassay. Quantitative values of individual biomarkers are not reportable and are not associated with individual biomarker result reference ranges. Cologuard is intended for colorectal cancer screening of adults of either sex, 45 years or older, who are at average-risk for colorectal cancer (CRC). Cologuard has been approved for use by the U.S. FDA. The performance of Cologuard was established in a cross sectional study of average-risk adults aged 50-84. Cologuard performance in patients ages 45 to 49 years was estimated by sub-group analysis of near-age groups. Colonoscopies performed for a positive result may find as the most clinically significant lesion: colorectal cancer [4.0%], advanced adenoma (including sessile serrated polyps greater than or equal to 1cm diameter) [20%] or non- advanced adenoma [31%]; or no colorectal neoplasia [45%]. These estimates are derived from a prospective cross-sectional screening study of 10,000 individuals at average risk for colorectal cancer who were screened with both Cologuard and colonoscopy. (Mary Davison al, N Engl J Med 2014;370(14):5983-6981.) Cologuard may produce a false negative or false positive result (no colorectal cancer or precancerous polyp present at colonoscopy follow up). A negative Cologuard test result does not guarantee the absence of CRC or advanced adenoma (pre-cancer). The current Cologuard screening interval is every 3 years. ([place] Cancer Society and U.S. Multi-Society Task Force). Cologuard performance data in a 10,000 patient pivotal study using colonoscopy as the reference method can be accessed at the following location: www.[employer].MIKESTAR/results. Additional description of the Cologuard test process, warnings and precautions can be found at [email or web address]. Stool 01/19/2024 8:00 PM CDT 01/21/2024 12:02 PM CDT us Kilo Lozano MD BODY FLUIDS & STOOLS ABIMAEL PEREZ Final Result [facility], [facility] [address] [place] [address], [facility] [address] [place] [address] * (ABNORMAL) HEMOGLOBIN A1C W/ ESTIMATED GLUCOSE (12/26/2023 4:42 PM CDT) HGB-A1C 8.9(H) 4.0 - 6.0 % 12/28/2023 9:[address] [facility] Est Average Glucose 208.7 mg/dL 12/28/2023 9:53 AM CDT [facility] Blood Venipuncture / Unknown 12/26/2023 4:42 PM CDT 12/28/2023 9:14 AM CDT Narrative [facility] - 12/28/2023 9:53 AM CDT HEMOGLOBIN A1C: DIABETIC PATIENTS: WELL-CONTROLLED: 6.2 - 7.0 INTERMEDIATE WELL-CONTROLLED: 7.0 - 9.0 POORLY-CONTROLLED: >9.0 us Kilo Lozano MD CHEMISTRY ORDERABLES Sweta l Result Performing Organization Address City/[facility]/ZIP Co de Phone Number [facility] [address] [place] [address] * HEPATITIS C ANTIBODY (12/26/2023 4:42 PM CDT) hepatitis C antibody 0.10 <1 S/CO 12/27/2023 3:26 PM CDT [facility] Comment: Signal/Cutoff ratio < 0.79 is Nondetected Signal/Cutoff ratio 0.80-0.99 is Grayzone Signal/Cutoff ratio > 0.99 is Detected Supplemental assays are recommended if signal/cutoff ratio is >/=1.00. Signal/cutoff ratio result >/= 5.00 is 97% predictive of positivity for recombinant immunoblot assay (RIBA) and will be reported to the [place] Department of Public Health as required. Blood Venipuncture / Unknown 12/26/2023 4:42 PM CDT 12/26/2023 4:42 PM CDT us Kilo Lozano MD CHEMISTRY ORDERABLES Sweta l Result [facility] [address] [place] [address], * (ABNORMAL) CMP (COMPREHENSIVE METABOLIC PANEL) (12/26/2023 4:42 PM CDT) SODIUM 136 136 - 145 mmol/L 12/27/2023 8:59 AM CDT [facility] POTASSIUM 4.7 3.5 - 5.1 mmol/L 12/27/2023 8:59 AM CDT [facility] CHLORIDE 104 98 - 107 mmol/L 12/27/2023 8:59 AM CDT [facility] CO2, VENOUS 22 22 - 30 mmol/L 12/27/2023 8:59 AM CDT [facility] ANION GAP 14.7 <18.0 mmol/L 12/27/2023 8:59 AM CDT [facility] GLUCOSE 122(H) 70 - 99 mg/dL 12/27/2023 8:59 AM CDT [facility] BUN 13 8 - 26 mg/dL 12/27/2023 8:59 AM CDT [facility] CREATININE, BLOOD 0.93 0.70 - 1.30 mg/dL 12/27/2023 8:59 AM CDT [facility] BUN/CREATININE RATIO 14 12 - 20 ratio 12/27/2023 8:59 AM CDT [facility] TOTAL PROTEIN 6.7 6.3 - 8.2 g/dL 12/27/2023 8:59 AM CDT [facility] ALBUMIN 4.3 3.5 - 5.0 g/dL 12/27/2023 8:59 AM CDT [facility] A/G RATIO 1.8 1.0 - 2.2 12/27/2023 8:59 AM CDT [facility] CALCIUM 9.2 8.7 - 10.5 mg/dL 12/27/2023 8:59 AM CDT [facility] T BILI 1.3(H) 0.2 - 1.2 mg/dL 12/27/2023 8:59 AM CDT [facility] SGOT (AST) 46 19 - 46 U/L 12/27/2023 8:59 AM CDT [facility] SGPT (ALT) 84(H) 0 - 55 U/L 12/27/2023 8:[address] [facility] ALKALINE PHOSPHATASE 67 40 - 150 U/L 12/27/2023 8:59 AM CDT [facility] IS THE PATIENT REQUIRED TO BE FASTING? No 12/27/2023 8:[address] [facility] GFR, ESTIMATED >60 >=60 12/27/2023 8:59 AM CDT [facility] Comment: Creatinine Clearance is the preferred criteria for selecting drug dose adjustments in renally impaired patients. The GFR is provided as additional pertinent clinical information. GFR is reported in mL/min/1.73 sq m. Calculation based on the Chronic Kidney Disease Epidemiology Collaboration (CKD- EPI) equation refit without adjustment for race. GFR, EST. >60 >=60 024 8:59 AM CDT [facility] GFR, EST. NONAFRICAN >60 >=60 12/27/2023 8:59 AM CDT [facility] Blood Venipuncture / Unknown 12/26/2023 4:42 PM CDT 12/26/2023 4:42 PM CDT us Kilo Lozano MD CHEMISTRY ORDERABLES Sweta hauser Result [facility] [address] [place] [address] from Last 3 Months or Most Recently Relevant to Health Maintenance [facility] Care Teams Streetcar Repairer Helper Relationship Specialty Start Date End Date Kilo Lozano MD [address] [place] [address] PCP - General Internal Medicine 03/23/21 Nithin March MD [address] [facility] [address] [place] [address] Consulting Physician Cardiovascular Disease - Cardiology 03/23/21
--- OUTSIDE RECORDS SUMMARY | 2024-10-08 16:26 | XMS_ITS | Clinical Summary ---
Author Organization [facility] Address [address] [place] [address] Phone Care Team Providers Care Client Advocate Name Role Phone NATHAN ALFARO MD Primary Care Provider [phone] ANGELINA Lopez, DARRELL Menard [phone] Reason for Visit and Chief Complaint visit for: post op exam Suture removal right scalp Plan of Treatment No Plan of Treatment Recorded Assessments Includes: Assessments from this encounter No Assessments Recorded Medical Equipment - Implanted Devices Includes: Current [...] 08/02/2018 1:48PM By NATHAN ALFARO MD ; [facility] Lisinopril 2.5MG Oral Tablet 08/02/2018 Provider: DARRELL ALFARO M.D. Diagnosis: TAKE 1 TABLET BY MOUTH ONCE DAILYNeed Office Vis it. Last Documented On 08/02/2018 4:34PM By NATHAN ALFARO MD ; [facility] Atorvastatin Calcium 80MG Oral Tablet 08/02/2018 Pro vider: DARRELL ALFARO M.D. Diagnosis: One tablet dailyNeed Office Visit. Last Documented On 08/02/2018 4:34PM By NATHAN ALFARO MD ; [facility] Medications Administered Includes: Administered Medications from this encounter No Administered Medications Recorded Vital Signs Includes: Vital Signs from this encounter Vital Name 10/26/2017 03:13P Blood Pressure Sitting L 124/61 Pulse Rate-Sitting (bpm) 65 Respiration Rate (breaths/min) 20 Temp-Tympanic (F) 98.1 Height (in) 69 Weight (lb) 202 Body Mass Index (kg/m2) 29.8 Body Surface Area (m2) 2.1 Last Documented: On 10/26/2017 3:14PM ; [facility] Results Includes: Results discussed during this encounter No Results Recorded For Specified Dates History of Present Illness Includes: History of Present Illness from this encounter No History of Present Illness Recorded Social History Description Last Updated Smoking status : Never smoker 10/19/2017 Last Documented On 8 2:55PM ; [facility] Currently 09/30/2017 Last Documented On 8 2:55PM ; 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 Medical History Includes: Medical History addressed during this encounter Description Last Updated History of coronary artery disease 09/30 Last Documented On 8 2:55PM ; [facility] History of essential hypertension 2017 Last Documented On 8 2:55PM ; [facility] History of hyperlipidemia 09/30/2017 Last Documented On 8 2:55PM ; [facility] Family History Includes: Family History addressed during this encounter Description Last Updated Paternal history of coronary artery dise ase 09/30/2017 Last Documented On 8 2:55PM ; [facility] 4 children 09/30/2017 Last Documented On 8 2:55PM ; [facility] Maternal history of breast cancer Mother 09/30/2017 Last Documented On 8 2:55PM ; [facility] Paternal history of diabetes mellitus Fa ther-Alive 09/30/2017 Last Documented On 8 2:55PM ; [facility] Paternal history of heart disease Father -heart attack -alive 09/30/2017 Last Documented On 8 2:55PM ; [facility] Paternal history of stroke syndrome Gran dfather-stroke 09/30/2017 Last Documented On 8 2:55PM ; [facility] Review of Systems Includes: Review of Systems from this encounter No Review of Systems Recorded Mental Status Includes: Mental Status from this encounter No Mental Status Recorded Functional Status Includes: Functional Status from this encounter No Functional Status Recorded Physical Exam Includes: Physical Exam from this encounter Allergies Includes: Active Allergies No Known Allergies Encounters Encounter Provider Location Date Check-In Time Check- Out Time Diagnosis POST OP VISIT MIRI MARKS DO [facility] 8 2:45PM 3:21PM Insurance Includes: Active Insurance Policies Plan Name Member ID Group # Subscriber Relationship Effect javid Dates 1 - [facility] [id number] NIK pearson Clinical Notes Includes: Clinical Notes from this encounter No Clinical Notes Recorded
--- OUTSIDE RECORDS SUMMARY | 2024-10-08 16:26 | XMS_ITS | Encounter Summary ---
Author Organization [facility] Address [address] [place] [address] Phone Care Team Providers Care Mechanical Engineering Technician Name Role Phone Kilo Lozano MD Primary Care Provider [phone] Nithin March MD Unavailable [phone] Reason for Visit * Reason Comments Dizziness Encounter Details Date Type Department Care Team (Late st Contact Info) Description 10/08/2024 3:42 PM CDT - Present Emergency [facility] Emergency [address] [place] [address] Zion Canseco, PAC [address] [place] [address] Social History Tobacco Use Types Packs/Day Years Used Date Smoking Tobacco: Never Smokeless Tobacco: Never Alcohol Use Standard Drinks/Week Comments Not Currently 0 (1 standard drink = 0.6 oz pur e alcohol) [facility] Utilities Answer Date Recorded In the past 12 months has [employer], gas, oil, or water [facility] threatened to shut off services in your home? Patient declined 12/22/2023 Social Connection and Isolation Panel [NHANES] A nswer Date Recorded In a typical week, how many times do you talk on the phone with family, friends, or neighbors? Patient declined 12/22/2023 How often do you get togethe r with friends or relatives? Patient declined 12/22/2023 How often do you attend restorationist or uatsdin serv ices? Patient declined 12/22/2023 Do you belong to any clubs o r organizations such as restorationist groups, unions, fraternal or athletic groups, or [...] Total Score - Questions 1-9 0 11/26 [facility] Occupat ional [facility] - Occupational Stress Questionnaire Answer Date Recorded [...] [facility] in the [facility], were you homeless or living in a [...] on file documented as of this encounter Last Filed Vital Signs Vital Sign Reading [...] Mass Index 26.54 10/08/2024 3:51 PM CDT documented in this encounter ED Notes * Yogi Bond RN - 10/08/2024 4:05 PM CDT Xray at bedside * Yogi Bond RN - 10/08/2024 3:55 PM CDT Patient assessed. Peripheral IV placed OFFICE SERVICE COORDINATOR by EMS. Blood specimens collected and EKG completed. Patient placed on NIBP, cardiac and SpO2 monitors * Sarita Burton RN - 10/08/2024 3:53 PM CDT Arrived via [facility] from [facility] care after patient reported near syncopal episode at work today around 1500. Per EMS blood pressure 147/99, heart rate 81, respirations 16, and FSBS 148. Uponarrival patient is alert and oriented x 4. Reports nausea and dizziness prior to event. Patient denies chest pain, dizziness, or shortness of breath. Placed on NIBP, pulse ox, and cardiac monitors. EKG obtained and attempting lab drawn. * Kristin Guadalupe - 10/08/2024 3:42 PM CDT Bed: ED02-01 Expected date: Expected time: Means of arrival: Comments: documented in this encounter Plan of Treatment Upcoming Encounters Date Type Department Care Team (Late st Contact Info) Description 12/24/2024 4:15 PM CDT Office Visit [facility] - Primary Care - [place] [address] [place] [id number] Kilo Lozano MD [address] [place] [address] Pending Results Name Type Priority Associated Diagnoses Date /Time XR CHEST SINGLE VIEW PORTABLE Imaging STAT 10/08/2024 4:09 PM CDT Scheduled Orders Name Type Priority Associated Diagnoses Order Schedule EKG 12 LEAD ECG STAT One Time for 1 Occurrences starting 10/08/2024 until 10/08/2024 Pulse Oximetry, Continuous Respiratory Care Routine Continuous unti l discontinued starting 10/08/2024 CBC w/ Diff Lab STAT One Time for 1 Occurrences starting 10/08/2024 until 10/08/2024 CMP Lab STAT One Time for 1 Occurrences starting 10/08/2024 until 10/08/2024 Magnesium Lab STAT One Time for 1 Occurrences starting 10/08/2024 until 10/08/2024 TROPONIN I, HIGH SENSITIVITY (HSTRP) Lab STAT One Time for 1 Occurrences starting 10/08/2024 until 10/08/2024 XR CHEST SINGLE VIEW PORTABLE Imaging STAT Once PRN (for Radiant use) for 1 Occurrences starting 10/08/2024 until 10/08/2024 Thyroid Stimulating Hormone (TSH) Lab STAT One Time for 1 Occurrences starting 10/08/2024 until 10/08/2024 THYROXINE (T4) FREE Lab Routine One T tessa for 1 Occurrences starting 10/08/2024 until 10/08/2024 CBC with Auto Differential Lab Only STAT Once for 1 Occurrences starting 10/08/2024 until 10/08/2024 documented as of this encounter Visit Diagnoses Not on filedocumented in this encounter Additional Health Concerns Assessment Noted Time PHQ-9 Depression Total Score: 0 12/23/19 24 4:22 PM CDT documented as of this encounter Care Teams Mechanical Engineering Technician Relationship Specialty Start Date End Date Kilo Lozano MD [address] [place] [address] PCP - General Internal Medicine 03/23/21 Nithin March MD [address] [facility] [address] [place] [address] Consulting Physician Cardiovascular Disease - Cardiology 03/23/21 documented as of this encounter
--- OUTSIDE RECORDS SUMMARY | 2024-10-08 16:26 | XMS_ITS ---
Care Plan - [facility] Created on: October 08, 2024 NIK ORTEGA : 1970 Sex: Male Author Organization [facility] Address [address] [place] [address] Phone Care Team Providers Care Hematology Oncology Consultant Name Role Phone NATHAN ALFARO MD Primary Care Provider [phone] ANGELINA Lopez, DARRELL Menard [phone]
--- OUTSIDE RECORDS SUMMARY | 2024-10-08 16:26 | XMS_ITS | Referral Summary ---
Author Organization [facility] Address [facility] [place] [address] Care Team Providers Care Car Ferry Master Name Role Phone Slim Ordaz MD Primary Care Provider [phone] Allergies No known active allergies Medications coenzyme [...] Diagnosed Date Coronary artery disease invo [place]ving [place] coronary artery of [place] heart without angina pectoris 09/01/2020 Cardiomyopathy, ischemic 09/01/2020 Hypertension 09/01/2020 Hyperlipidemia 09/01/2020 Social History Tobacco Use Types Packs/Day Years Used Date Smoking Tobacco: Never Smokeless Tobacco: Never Personal Safety Answer Date Recorded Getting School Help Needed Not on file 09/10 Sex and Gender Information Value Date Recorded Sex Assigned at Not on file 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 The CKD-EPI equation should not be used for patients with unstable renal function and has not been validated in children and those over 70. Current interpretive data was last reviewed 2021. Blood 10/25/2021 2:14 PM CDT 10/25/2021 2:21 PM CDT us Severo Gregorio MD LAB BLOOD ORDERABLES Final Result [facility] [address] [facility] [place] [address] from Last 3 Months or Most Recently Relevant to Health Maintenance Care Teams Car Ferry Master Relationship Specialty Start Date End Date Slim Ordaz MD [address] [place] [id number] PCP - General Internal Medicine 08/22/18
--- OUTSIDE RECORDS SUMMARY | 2024-10-08 16:26 | XMS_ITS | Clinical Summary ---
Author Organization [facility] Address [address] [place] [address] Phone Care Team Providers Care Beam Builder Helper Name Role Phone NATHAN ALFARO MD Primary Care Provider [phone] ANGELINA Lopez, DARRELL Menard [phone] Reason for Visit and Chief Complaint RX ISSUE/REFILL Plan of Treatment No Plan of Treatment Recorded Assessments Includes: Assessments from this encounter No Assessments Recorded Medical Equipment - Implanted Devices Includes: Current Devices No Medical Equipment Recorded Medications Includes: Medications discussed during this encounter and other current Medications New / Renewed during this visit DARRELL ALFARO M.D. on 11/18/2017 Lisinopril 2.5MG Oral Tablet Provider: DARRELL ALFARO M.D. 30 day supply: 30 tablet, 0 refills Diagnosis: One tablet daily Pharmacy: [facility] [address], [address] - Last Documented On 12/20/2017 8:56AM By NATHAN ALFARO MD ; [facility] Current Medications (continue as prescribed) Metoprolol Succinate ER 25MG Oral Tablet Extended Release 24 Hour 08/02/2018 Provider: DARRELL ALFARO M.D. Diagnosis: TAKE 1/2 TABLET BY MOUTH ONCE DAILY NEED OFFICE VISIT. Last Documented On 08/02/2018 1:48PM By NATHAN ALFARO MD ; [facility] Lisinopril 2.5MG Oral Tablet 08/02/2018 Provider: DARRELL ALFARO M.D. Diagnosis: TAKE 1 TABLET BY MOUTH ONCE DAILYNeed Office Vis it. Last Documented On 08/02/2018 4:34PM By NATHAN ALFARO MD ; [facility] Atorvastatin Calcium 80MG Oral Tablet 08/02/2018 Pro vider: DARRELL ALFARO M.D. Diagnosis: One tablet dailyNeed Office Visit. Last Documented On 08/02/2018 4:34PM By NATHAN ALFARO MD ; [facility] Medications Administered Includes: Administered Medications from this encounter No Administered Medications Recorded Results Includes: Results discussed during this encounter No Results Recorded For Specified Dates History of Present Illness Includes: History of Present Illness from this encounter No History of Present Illness Recorded Social History No Social History Recorded - Smoking Status Unknown Medical History Includes: Medical History addressed during this encounter No Medical History Recorded Family History Includes: Family History addressed during this encounter No Family History Recorded Review of Systems Includes: Review of Systems from this encounter No Review of Systems Recorded Mental Status Includes: Mental Status from this encounter No Mental Status Recorded Functional Status Includes: Functional Status from this encounter No Functional Status Recorded Physical Exam Includes: Physical Exam from this encounter No Physical Exam Recorded Allergies Includes: Active Allergies No Known Allergies Encounters Encounter Provider Location Date Check-In Time Check-Out Time Diagnosis RX ISSUE/REFILL DARRELL ALFARO M.D. 11/18/2017 1:14PM 11:59PM Insurance Includes: Active Insurance Policies Plan Name Member ID Group # Subscriber Relationship Effect javid Dates 1 - [facility] [id number] NIK pearson Clinical Notes Includes: Clinical Notes from this encounter No Clinical Notes Recorded
--- OUTSIDE RECORDS SUMMARY | 2024-10-08 16:26 | XMS_ITS | Clinical Summary ---
Author Organization [facility] Address [address] [place] [address] Phone Care Team Providers Care Occupational Therapy Supervisor Name Role Phone NATHAN ALFARO MD Primary Care Provider [phone] ANGELINA Lopez, DARRELL Menard [phone] Reason for Visit and Chief Complaint RX [...] 08/02/2018 1:48PM By NATHAN ALFARO MD ; [facility] Lisinopril 2.5MG Oral Tablet 08/02/2018 Provider: DARRELL ALFRAO M.D. Diagnosis: TAKE 1 TABLET BY MOUTH ONCE DAILYNeed Office Vis it. Last Documented On 08/02/2018 4:34PM By NATHAN ALFARO MD ; [facility] Atorvastatin Calcium 80MG Oral Tablet 08/02/2018 Pro vider: DARRELL ALFARO M.D. Diagnosis: One tablet dailyNeed Office Visit. Last Documented On 08/02/2018 4:34PM By NATHAN ALFARO MD ; [facility] Medications Administered Includes: [...] Time Diagnosis RX ISSUE/REFILL DARRELL ALFARO M.D. 08/02/2018 4:08PM 11:59PM Insurance Includes: Active Insurance Policies Plan Name Member ID Group # Subscriber Relationship Effect javid Dates 1 - [facility] [id number] NIK pearson Clinical Notes Includes: Clinical Notes from this encounter No Clinical Notes Recorded
--- OUTSIDE RECORDS SUMMARY | 2024-10-08 16:26 | XMS_ITS | Clinical Summary ---
Author Organization [facility] Address [address] [place] [address] Phone Care Team Providers Care Experimental Machining Lab Manager Name Role Phone NATHAN ALFARO MD Primary Care Provider [phone] ANGELINA Lopez, DARRELL Menard [phone] Reason for Visit and Chief Complaint visit for: hyperlipedemia follow up, visit for: Ischemic Heart Disease Followup, visit for: Hypertension follow-up - The Chief Complaint is: NPE. Pt has growth on his scalp that has increased in sizeover the years. Pt has also been getting a headache on that same side. So he is concerned Plan of Treatment - Return to the clinic if condition worsens or new symptoms arise - Last Documented On 09/30/2017 3:57PM ; [facility] - Continue current medication - Last Documented On 09/30/2017 3:57PM ; [facility] - Patient to call if problem develops - Last Documented On 09/30/2017 3:57PM ; [facility] - Plan - start medication alleve as needed - Last Documented On 09/30/2017 3:57PM ; [facility] Pending Tests Order Diagnosis Results Due Ordering P rovider Lab LIPID PANEL 12/29/17 DARRELL PETERS M.D. Last Documented On 9 7:39AM ; [facility] Lab CMP 12/29/17 DARRELL Rodríguez M.D. Last Documented On 9 7:39AM ; [facility] Referrals To Diagnosis Family Law Attorney [facility] [address] [address] - Athscl heart disease of [place] coronary artery w/o ang pctrs Note: Edward Last Documented On 8 12:15PM ; [facility] General Surgery MIRI MARKS DO Neoplasm of un certain behavior of skin Note: DR Marks for skin l esion removal Last Documented On 8 4:06PM ; [facility] Assessments Includes: Assessments from this encounter Findings - I25.10 - Atherosclerotic heart disease of red devil coronary artery without angina pectoris - Last Documented On 09/30/2017 3:57PM ; [facility] - I10 - Essential (primary) hypertension - Last Documented On 09/30/2017 3:57PM ; [facility] - E78.5 - Hyperlipidemia, unspecified - Last Documented On 09/30/2017 3:57PM ; [facility] - G44.219 - Episodic tension-type headache, not intractable - Last Documented On 09/30/2017 3:57PM ; [facility] Medical Equipment - Implanted Devices Includes: [...] 08/02/2018 1:48PM By NATHAN ALFARO MD ; [facility] Lisinopril 2.5MG Oral Tablet 08/02/2018 Provider: DARRELL ALFARO M.D. Diagnosis: TAKE 1 TABLET BY MOUTH ONCE DAILYNeed Office Vis it. Last Documented On 08/02/2018 4:34PM By NATHAN ALFARO MD ; [facility] Atorvastatin Calcium 80MG Oral Tablet 08/02/2018 Pro vider: DARRELL ALFARO M.D. Diagnosis: One tablet dailyNeed Office Visit. Last Documented On 08/02/2018 4:34PM By NATHAN ALFARO MD ; [facility] Medications Administered Includes: Administered Medications from this encounter No Administered Medications Recorded Vital Signs Includes: Vital Signs from this encounter Vital Name 09/30/2017 03:03P Blood Pressure Sitting L 120/78 BP Cuff Size Regular Pulse Rate-Sitting (bpm) 74 Respiration Rate (breaths/min) 20 Height (in) 69 Weight (lb) 201.8 Body Mass Index (kg/m2) 29.8 Body Surface Area (m2) 2.1 Oxygen Saturation (%) 97 Last Documented: On 09/30/2017 3:09PM ; [facility] Results Includes: Results discussed during this encounter No Results Recorded For Specified Dates History of Present Illness Includes: History of Present Illness from this encounter NOAH ORTEGA is a 46 year old male. ROCK at L post neck. L occiput. - Medication list reviewed. 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 Last Documented On 8 3:57PM ; [facility] Smoking status : Never smoker 09/30/2017 Last Documented On 8 3:57PM ; [facility] Medical History Includes: Medical History addressed during this encounter Description Last Updated History of coronary artery disease 09/30 Last Documented On 8 3:57PM ; [facility] History of essential hypertension 2017 Last Documented On 8 3:57PM ; [facility] History of hyperlipidemia 09/30/2017 Last Documented On 8 3:57PM ; [facility] Family History Includes: Family History addressed during this encounter Description Last Updated Paternal history of coronary artery dise ase 09/30/2017 Last Documented On 8 3:57PM ; [facility] 4 children 09/30/2017 Last Documented On 8 3:57PM ; [facility] Maternal history of breast cancer Mother 09/30/2017 Last Documented On 8 3:57PM ; [facility] Paternal history of diabetes mellitus Fa ther-Alive 09/30/2017 Last Documented On 8 3:57PM ; [facility] Paternal history of heart disease Father -heart attack -alive 09/30/2017 Last Documented On 8 3:57PM ; [facility] Paternal history of stroke syndrome Gran dfather-stroke 09/30/2017 Last Documented On 8 3:57PM ; [facility] Review of Systems Includes: Review of Systems from this encounter Systemic: Not feeling tired (fatigue). No fever, no chills, no night sweats, and no edema. Head: Head symptoms Pt has a mass on the back of his head that has increased in size and headache. Cardiovascular: Cardiovascular symptoms Heart trouble =Pt had a massive heart attack 2009. No chest pain or discomfort and no palpitations. Pulmonary: No dyspnea and not expressed as feeling short of breath. No paroxysmal nocturnal dyspnea, no orthopnea, no cough, not coughing up sputum, and no hemoptysis. Gastrointestinal: No heartburn. No early satiety, no abdominal pain, and no melena. No constipation. Genitourinary: No hematuria and no change in urinary frequency. No dysuria. Musculoskeletal: No muscle aches and no arthralgias. Neurological: No dizziness and no fainting. Mental Status Includes: Mental Status from this encounter Description Oriented to time, place, and person Functional Status Includes: Functional Status from this encounter No Functional Status Recorded Physical Exam Includes: Physical Exam from this encounter Allergies Includes: Active Allergies No Known Allergies Encounters Encounter Provider Location Date Check-In Time Check-Out Time Diagnosis NEW PATIENT VISIT DARRELL ALFARO M.D. [facility] 10/01/19 18 2:51PM 3:32PM Essential Hypertension,C oronary Artery Disease,Hyperl ipidemia,Tensi on-type Headache Episodic Without Intractable Headache Insurance Includes: Active Insurance Policies Plan Name Member ID Group # Subscriber Relationship Effect javid Dates 1 - [facility] [id number] NIK pearson Clinical Notes Includes: Clinical Notes from this encounter No Clinical Notes Recorded
--- OUTSIDE RECORDS SUMMARY | 2024-10-08 16:28 | XMS_ITS | Clinical Summary ---
Author Organization [facility] Address [address] [place] [address] Phone Care Team Providers Care Dial Printer Name Role Phone NATHAN ALFARO MD Primary Care Provider [phone] ANGELINA Lopez, DARRELL Menard [phone] Reason for Visit and Chief Complaint visit [...] 08/02/2018 1:48PM By NATHAN ALFARO MD ; [facility] Lisinopril 2.5MG Oral Tablet 08/02/2018 Provider: DARRELL ALFARO M.D. Diagnosis: TAKE 1 TABLET BY MOUTH ONCE DAILYNeed Office Vis it. Last Documented On 08/02/2018 4:34PM By NATHAN ALFARO MD ; [facility] Atorvastatin Calcium 80MG Oral Tablet 08/02/2018 Pro vider: DARERLL ALFARO M.D. Diagnosis: One tablet dailyNeed Office Visit. Last Documented On 08/02/2018 4:34PM By NATHAN ALFARO MD ; [facility] Medications Administered Includes: Administered Medications [...] 2.1 Last Documented: On 10/26/2017 3:14PM ; 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 Last Documented On 8 2:55PM ; [facility] Medical History Includes: Medical History addressed during this encounter Description Last Updated History of coronary artery disease 09/30 Last Documented On 8 2:55PM ; [facility] History of essential hypertension 2017 Last Documented On 8 2:55PM ; [facility] History of hyperlipidemia 09/30/2017 Last Documented On 8 2:55PM ; [facility] Family History Includes: Family History addressed during this encounter Description Last Updated Paternal history of coronary artery dise ase 09/30/2017 Last Documented On 8 2:55PM ; [facility] 4 children 09/30/2017 Last Documented On 8 2:55PM ; [facility] Maternal history of breast cancer Mother 09/30/2017 Last Documented On 8 2:55PM ; [facility] Paternal history of diabetes mellitus Fa ther-Alive 09/30/2017 Last Documented On 8 2:55PM ; [facility] Paternal history of heart disease Father -heart attack -alive 09/30/2017 Last Documented On 8 2:55PM ; [facility] Paternal history of stroke syndrome Gran dfather-stroke 09/30/2017 Last Documented On 8 2:55PM ; [facility] Review of Systems Includes: [...] Diagnosis POST OP VISIT MIRI MARKS DO [facility] 8 2:45PM 3:21PM Insurance Includes: Active Insurance Policies Plan Name Member ID Group # Subscriber Relationship Effect javid Dates 1 - [facility] [id number] NIK pearson Clinical Notes Includes: Clinical Notes from this encounter No Clinical Notes Recorded
--- OUTSIDE RECORDS SUMMARY | 2024-10-08 16:28 | XMS_ITS ---
Author Organization [facility] Address [address] [place] [address] Phone Care Team Providers Care Organizational Effectiveness Consultant Name Role Phone NATHAN ALFARO MD Primary Care Provider [phone] ANGELINA Lopez, DARRELL Menard [phone] Plan of Treatment Findings Encounter Date Excision [...] 10/19/2017 Last Documented On 8 4:03PM ; [facility] Continue current medication NEW PATIENT VISIT wi DARRELL ALFARO M.D. 09/30/2017 Last Documented On 8 3:57PM ; [facility] Ordered patient to call if noelle hodgson develops NEW PATIENT VISIT with DARRELL ALFARO M.D. 09/30/2017 Last Documented On 8 3:57PM ; [facility] Ordered return to the clinic if condition worsens or new symptoms arise NEW PATIENT VISIT with DARRELL ALFARO M.D. 09/30/2017 Last Documented On 8 3:57PM ; [facility] Plan - start medication román ve as needed NEW PATIENT VISIT with DARRELL ALFARO M.D. 09/30/2017 Last Documented On 8 3:57PM ; [facility] Referrals To Diagnosis Bill Adjuster [facility] [address] [address] - Athscl heart disease of [place] coronary artery w/o ang pctrs Note: [place] Last Documented On 8 12:15PM ; [facility] General Surgery MIRI MARKS DO Neoplasm of un certain behavior of skin Note: DR Marks for skin l esion removal Last Documented On 8 4:06PM ; [facility] Assessments Includes: Assessments for all patient encounters Findings Encounter Date Benign skin lesion right scalp CONSULTATION with MIRI MARKS DO 10/19/2017 Last Documented On 8 4:03PM ; [facility] Coronary artery disease NEW PATIENT VISIT with Sejal ALFARO M.D. 09/30/2017 Last Documented On 8 3:57PM ; [facility] Episodic tension-type headac he, without intractable headache NEW PATIENT VISIT with DARRELL ALFARO M.D. 09/30/2017 Last Documented On 8 3:57PM ; [facility] Essential hypertension NEW PATIENT VISIT with TAMMY ALFARO M.D. 09/30/2017 Last Documented On 8 3:57PM ; [facility] Hyperlipidemia NEW PATIENT VISIT with DARRELL ALFARO M.D. 09/30/2017 Last Documented On 8 3:57PM ; [facility] Medical Equipment - Implanted Devices Includes: Current and historical Devices No Medical Equipment Recorded Medications Includes: Current and historical Medications Current Medications (continue as prescribed) Metoprolol Succinate ER 25MG Oral Tablet Extended Release 24 Hour 08/02/2018 Provider: DARRELL ALFARO M.D. Diagnosis: TAKE 1/2 TABLET BY MOUTH ONCE DAILY NEED OFFICE VISIT. Last Documented On 08/02/2018 1:48PM By NATHAN ALFARO MD ; [facility] Lisinopril 2.5MG Oral Tablet 08/02/2018 Provider: DARRELL ALFARO M.D. Diagnosis: TAKE 1 TABLET BY MOUTH ONCE DAILYNeed Office Vis it. Last Documented On 08/02/2018 4:34PM By NATHAN ALFARO MD ; [facility] Atorvastatin Calcium 80MG Oral Tablet 08/02/2018 Pro vider: DARRELL ALFARO M.D. Diagnosis: One tablet dailyNeed Office Visit. Last Documented On 08/02/2018 4:34PM By NATHAN ALFARO MD ; [facility] Past Medications on file Metoprolol Succinate ER 25MG Oral Tablet, extended-release 24 hour 07/05/2018 - 08/02/2018 Provider: DARRELL ALFARO M.D. Diagnosis: TAKE 1/2 TABLET BY MOUTH ONCE DAILYNeed Office V isit. Last Documented On 08/02/2018 1:36PM By NATHAN ALFARO MD ; [facility] Lisinopril 2.5MG Oral Tablet 07/03/2018 - 08/02/2018 P rovider: DARRELL ALFARO M.D. Diagnosis: TAKE 1 TABLET BY MOUTH ONCE DAILYNeed Office Vis it. Last Documented On 08/02/2018 4:20PM By NATHAN ALFARO MD ; [facility] Lisinopril 2.5MG Oral Tablet 06/01/2018 - 07/03/2018 P rovider: DARRELL ALFARO M.D. Diagnosis: TAKE 1 TABLET BY MOUTH ONCE DAILYNeed Office Vis it. Last Documented On 07/03/2018 2:23PM By NATHAN ALFARO MD ; [facility] Metoprolol Succinate ER 25MG Oral Tablet Extended Release 24 Hour 05/30/2018 - 07/05/2018 Provider: DARRELL ALFARO M.D. Diagnosis: TAKE 1/2 TABLET BY MOUTH ONCE DAILYNeed Office V isit. Last Documented On 07/05/2018 8:55AM By NATHAN ALFARO MD ; [facility] Metoprolol Succinate ER 25MG Oral Tablet, extended-release 24 hour 04/27/2018 - 05/30/2018 Provider: DARRELL ALFARO M.D. Diagnosis: TAKE 1/2 TABLET BY MOUTH ONCE DAILYNeed Office V isit. Last Documented On 05/30/2018 9:02AM By NATHAN ALFARO MD ; [facility] Atorvastatin Calcium 80MG Or al Tablet 04/27/2018 - 08/02/2018 Provider: DARRELL ALFARO M.D. Diagnosis: One tablet dailyNeed Office Visit. Last Documented On 08/02/2018 4:20PM By NATHAN ALFARO MD ; [facility] Lisinopril 2.5MG Oral Tablet 03/23/2018 - 06/01/2018 P rovider: DARRELL ALFARO M.D. Diagnosis: TAKE 1 TABLET BY MOUTH ONCE DAILY NEED OFFICE SIT. Last Documented On 06/01/2018 8:56AM By NATHAN ALFARO MD ; [facility] Lisinopril 2.5MG Oral Tablet 02/22/2018 - 03/23/2018 P rovider: DARRELL ALFARO M.D. Diagnosis: TAKE 1 TABLET BY MOUTH ONCE DAILYNeed Office Vis it. Last Documented On 03/23/2018 8:52AM By NATHAN ALFARO MD ; [facility] Metoprolol Succinate ER 25MG Oral Tablet Extended Release 24 Hour 02/22/2018 - 04/27/2018 Provider: DARRELL ALFARO M.D. Diagnosis: TAKE 1/2 TABLET BY MOUTH ONCE DAILY Last Documented On 04/27/2018 8:53AM By NATHAN ALFARO MD ; [facility] Atorvastatin Calcium 80MG Or al Tablet 01/23/2018 - 04/27/2018 Provider: DARRELL ALFARO M.D. Diagnosis: One tablet daily Last Documented On 04/27/2018 8:52AM By NATHAN ALFARO MD ; [facility] Lisinopril 2.5MG Oral Tablet 01/20/2018 - 02/22/2018 P rovider: DARRELL ALFARO M.D. Diagnosis: One tablet dailyNeed Office Visit. Last Documented On 02/22/2018 11:28AM By NATHAN ALFARO MD ; [facility] Lisinopril 2.5MG Oral Tablet 12/20/2017 - 01/20/2018 P rovider: DARRELL ALFARO M.D. Diagnosis: One tablet daily Last Documented On 01/20/2018 3:15PM By NATHAN ALFARO MD ; [facility] Lisinopril 2.5MG Oral Tablet 11/18/2017 - 12/20/2017 P mayavider: DARRELL ALFARO M.D. Diagnosis: One tablet daily Last Documented On 12/20/2017 8:56AM By NATHAN ALFARO MD ; [facility] Metoprolol Tartrate 25MG Oral Tablet 09/30/2017 - 12/2018 Provider: Diagnosis: Last Documented On 08/03/2018 2:14PM By Kathie YIP ; [facility] Lisinopril 2.5MG Oral Tablet 09/30/2017 - 11/18/2017 P rovider: Diagnosis: Last Documented On 11/18/2017 1:15PM By Kathie YIP ; [facility] Atorvastatin Calcium 80MG Oral Tablet 09/30/2017 - 12/2018 Provider: Diagnosis: Last Documented On 08/03/2018 2:15PM By Kathie YIP ; [facility] Medications Administered Includes: Administered [...] 10/19/2017 Last Documented On 8 4:03PM ; [facility] Currently 09/30/2017 Last Documented On 8 3:57PM ; [facility] No tobacco use 09/30/2017 Last Documented On 8 3:57PM ; [facility] Not using alcohol 09/30/2017 Last Documented On 8 3:57PM ; [facility] Not using drugs 09/30/2017 Last Documented On 8 3:57PM ; [facility] 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 Last Documented On 8 3:57PM ; [facility] Medical History Includes: Medical History in patient's chart Description Last Updated History of coronary artery disease 09/30 Last Documented On 8 3:57PM ; [facility] History of essential hypertension 2017 Last Documented On 8 3:57PM ; [facility] History of hyperlipidemia 09/30/2017 Last Documented On 8 3:57PM ; [facility] Family History Includes: Family History in patient's chart Description Last Updated Paternal history of coronary artery dise ase 09/30/2017 Last Documented On 8 3:57PM ; [facility] 4 children 09/30/2017 Last Documented On 8 3:57PM ; [facility] Maternal history of breast cancer Mother 09/30/2017 Last Documented On 8 3:57PM ; [facility] Paternal history of diabetes mellitus Fa ther-Alive 09/30/2017 Last Documented On 8 3:57PM ; [facility] Paternal history of heart disease Father -heart attack -alive 09/30/2017 Last Documented On 8 3:57PM ; [facility] Paternal history of stroke syndrome Gran dfather-stroke 09/30/2017 Last Documented On 8 3:57PM ; [facility] Review of Systems Review of Systems [...] Subscriber Relationship Effect javid Dates 1 - [facility] [id number] NIK perason Clinical Notes Includes: Signed Clinical Notes starting from 07/16/2022 No Clinical Notes Recorded
--- OUTSIDE RECORDS SUMMARY | 2024-10-08 16:28 | XMS_ITS | Clinical Summary ---
Author Organization [facility] Address [address] [place] [address] Phone Care Team Providers Care Wood Finisher Name Role Phone NATHAN ALFARO MD Primary Care Provider [phone] ANGELINA Lopez, DARRELL Menard [phone] Reason for Visit and Chief Complaint visit [...] - Last Documented On 09/30/2017 3:57PM ; [facility] - Continue current medication - Last Documented On 09/30/2017 3:57PM ; [facility] - Patient to call if problem develops - Last Documented On 09/30/2017 3:57PM ; [facility] - Plan - start medication alleve as needed - Last Documented On 09/30/2017 3:57PM ; [facility] Pending Tests Order Diagnosis Results Due Ordering P rovider Lab LIPID PANEL 12/29/17 DARRELL PETERS M.D. Last Documented On 9 7:39AM ; [facility] Lab CMP 12/29/17 DARRELL Rodríguez M.D. Last Documented On 9 7:39AM ; [facility] Referrals To Diagnosis Sales Rep [facility] [address] [address] - Athscl heart disease of [place] coronary artery w/o ang pctrs Note: [place] Last Documented On 8 12:15PM ; [facility] General Surgery MIRI MARKS DO Neoplasm of un certain behavior of skin Note: DR Marks for skin l esion removal Last Documented On 8 4:06PM ; [facility] Assessments Includes: Assessments from this encounter Findings - I25.10 - Atherosclerotic heart disease of [place] coronary artery without angina pectoris - Last Documented On 09/30/2017 3:57PM ; [facility] - I10 - Essential (primary) hypertension - Last Documented On 09/30/2017 3:57PM ; [facility] - E78.5 - Hyperlipidemia, unspecified - Last Documented On 09/30/2017 3:57PM ; [facility] - G44.219 - Episodic tension-type headache, not intractable - Last Documented On 09/30/2017 3:57PM ; [facility] Medical Equipment - Implanted Devices [...] 08/02/2018 1:48PM By NATHAN ALFARO MD ; [facility] Lisinopril 2.5MG Oral Tablet 08/02/2018 Provider: DARRELL ALFARO M.D. Diagnosis: TAKE 1 TABLET BY MOUTH ONCE DAILYNeed Office Vis it. Last Documented On 08/02/2018 4:34PM By NATHAN ALFARO MD ; [facility] Atorvastatin Calcium 80MG Oral Tablet 08/02/2018 Pro vider: DARRELL ALFARO M.D. Diagnosis: One tablet dailyNeed Office Visit. Last Documented On 08/02/2018 4:34PM By NATHAN ALFARO MD ; [facility] Medications Administered Includes: Administered Medications from [...] 97 Last Documented: On 09/30/2017 3:09PM ; [facility] Results Includes: Results discussed during this encounter No Results Recorded For Specified Dates History of Present Illness Includes: History of Present Illness from this encounter NOAH ORTEGA is a 46 year old male. ROCK at L post neck. L occiput. - Medication list reviewed. 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 Smoking status : Never smoker 09/30/2017 Last Documented On 8 3:57PM ; [facility] Medical History Includes: Medical History addressed during this encounter Description Last Updated History of coronary artery disease 09/30 Last Documented On 8 3:57PM ; [facility] History of essential hypertension 2017 Last Documented On 8 3:57PM ; [facility] History of hyperlipidemia 09/30/2017 Last Documented On 8 3:57PM ; [facility] Family History Includes: Family History addressed during this encounter Description Last Updated Paternal history of coronary artery dise ase 09/30/2017 Last Documented On 8 3:57PM ; [facility] 4 children 09/30/2017 Last Documented On 8 3:57PM ; [facility] Maternal history of breast cancer Mother 09/30/2017 Last Documented On 8 3:57PM ; [facility] Paternal history of diabetes mellitus Fa ther-Alive 09/30/2017 Last Documented On 8 3:57PM ; [facility] Paternal history of heart disease Father -heart attack -alive 09/30/2017 Last Documented On 8 3:57PM ; [facility] Paternal history of stroke syndrome Gran dfather-stroke 09/30/2017 Last Documented On 8 3:57PM ; [facility] Review of Systems Includes: Review of Systems [...] Diagnosis NEW PATIENT VISIT DARRELL ALFARO M.D. [facility] 10/01/19 18 2:51PM 3:32PM Essential Hypertension,C oronary Artery Disease,Hyperl ipidemia,Tensi on-type Headache Episodic Without Intractable Headache Insurance Includes: Active Insurance Policies Plan Name Member ID Group # Subscriber Relationship Effect javid Dates 1 - [facility] [id number] NIK pearson Clinical Notes Includes: Clinical Notes from this encounter No Clinical Notes Recorded
--- OUTSIDE RECORDS SUMMARY | 2024-10-08 16:28 | XMS_ITS ---
Care Plan - [facility] Created on: October 08, 2024 NIK ORTEGA : 1970 Sex: Male Author Organization [facility] Address [address] [place] [address] Phone Care Team Providers Care Turkey Picker Name Role Phone NATHAN ALFARO MD Primary Care Provider [phone] ANGELINA Lopez, DARRELL Menard [phone]
--- OUTSIDE RECORDS SUMMARY | 2024-10-08 16:28 | XMS_ITS | Clinical Summary ---
Author Organization [facility] Address [address] [place] [address] Phone Care Team Providers Care Business Continuity Manager Name Role Phone NATHAN ALFARO MD Primary Care Provider [phone] ANGELINA Lopez, DARRELL Menard [phone] Reason for Visit and Chief Complaint RX [...] 0 refills Diagnosis: One tablet daily Pharmacy: [facility] [address], [address] - Last Documented On 12/20/2017 8:56AM By NATHAN ALFARO MD ; [facility] Current Medications (continue as prescribed) Metoprolol Succinate ER 25MG Oral Tablet Extended Release 24 Hour 08/02/2018 Provider: DARRELL ALFARO M.D. Diagnosis: TAKE 1/2 TABLET BY MOUTH ONCE DAILY NEED OFFICE VISIT. Last Documented On 08/02/2018 1:48PM By NATHAN ALFARO MD ; [facility] Lisinopril 2.5MG Oral Tablet 08/02/2018 Provider: DARRELL ALFARO M.D. Diagnosis: TAKE 1 TABLET BY MOUTH ONCE DAILYNeed Office Vis it. Last Documented On 08/02/2018 4:34PM By NATHAN ALFARO MD ; [facility] Atorvastatin Calcium 80MG Oral Tablet 08/02/2018 Pro vider: DARRELL ALFARO M.D. Diagnosis: One tablet dailyNeed Office Visit. Last Documented On 08/02/2018 4:34PM By NATHAN ALFARO MD ; [facility] Medications Administered Includes: Administered [...] Subscriber Relationship Effect javid Dates 1 - [facility] [id number] NIK pearson Clinical Notes Includes: Clinical Notes from this encounter No Clinical Notes Recorded
--- OUTSIDE RECORDS SUMMARY | 2024-10-08 16:28 | XMS_ITS | Clinical Summary ---
Author Organization [facility] Address [address] [address] Phone Care Team Providers Care Certification Technician Name Role Phone NATHAN ALFARO MD Primary Care Provider [phone] ANGELINA Lopez, DARRELL Menard [phone] Reason for Visit and Chief Complaint RX [...] 08/02/2018 1:48PM By NATHAN ALFARO MD ; [facility] Lisinopril 2.5MG Oral Tablet 08/02/2018 Provider: DARRELL ALFARO M.D. Diagnosis: TAKE 1 TABLET BY MOUTH ONCE DAILYNeed Office Vis it. Last Documented On 08/02/2018 4:34PM By NATHAN ALFARO MD ; [facility] Atorvastatin Calcium 80MG Oral Tablet 08/02/2018 Pro vider: DARRELL ALFARO M.D. Diagnosis: One tablet dailyNeed Office Visit. Last Documented On 08/02/2018 4:34PM By NATHAN ALFARO MD ; [facility] Medications Administered Includes: [...] Effect javid Dates 1 - [facility] [id number] NIK pearson Clinical Notes Includes: Clinical Notes from this encounter No Clinical Notes Recorded
--- OUTSIDE RECORDS SUMMARY | 2024-10-08 16:28 | XMS_ITS | Clinical Summary ---
Author Organization [facility] Address [address] [place] [address] Phone Care Team Providers Care Rn Tele Name Role Phone NATHAN ORDAZ MD Primary Care Provider [phone] ANGELINA Lopez, DARRELL Menard [phone] Reason for Visit and Chief Complaint referred [...] - Last Documented On 10/19/2017 4:03PM ; [facility] Assessments Includes: Assessments from this encounter Findings Benign skin lesion right scalp. - Last Documented On 10/19/2017 4:03PM ; [facility] Medical Equipment - Implanted [...] 08/02/2018 4:34PM By NATHAN ORDAZ MD ; [facility] Atorvastatin Calcium 80MG Oral Tablet 08/02/2018 Pro vider: DARRELL ORDAZ M.D. Diagnosis: One tablet dailyNeed Office Visit. 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 On 8 2:59PM ; [facility] Medical History Includes: Medical History addressed during this encounter Description Last Updated History of coronary artery disease 09/30 Last Documented On 8 2:59PM ; [facility] History of essential hypertension 2017 Last Documented On 8 2:59PM ; [facility] History of hyperlipidemia 09/30/2017 Last Documented On 8 2:59PM ; [facility] Family History Includes: Family History addressed during this encounter Description Last Updated Paternal history of coronary artery dise ase 09/30/2017 Last Documented On 8 2:59PM ; [facility] 4 children 09/30/2017 Last Documented On 8 2:59PM ; [facility] Maternal history of breast cancer Mother 09/30/2017 Last Documented On 8 2:59PM ; [facility] Paternal history of diabetes mellitus Fa ther-Alive 09/30/2017 Last Documented On 8 2:59PM ; [facility] Paternal history of heart disease Father -heart attack -alive 09/30/2017 Last Documented On 8 2:59PM ; [facility] Paternal history of stroke syndrome Gran dfather-stroke 09/30/2017 Last Documented On 8 2:59PM ; [facility] Review of Systems Includes: Review [...] Check-Out Time Diagnosis CONSULTATION MIRI MARKS DO [facility] 10/20/19 18 3:15PM 3:57PM Assessment [use For S.o.a.p. Note Free Text] Insurance Includes: Active Insurance Policies Plan Name Member ID Group # Subscriber Relationship Effect javid Dates 1 - [facility] [id number] NIK pearson Clinical Notes Includes: Clinical Notes from this encounter No Clinical Notes Recorded
== END 2024-10-08 15:12 | disposition short-term general hospital (02) ==
PROVIDERS: Emergency Provider Nurse Practitioner Family
DX: R00.2 Palpitations (principal); R20.0 Anesthesia of skin; I10 Essential (primary) hypertension; E11.9 Type 2 diabetes mellitus without complications; E78.00 Pure hypercholesterolemia, unspecified; I25.2 Old myocardial infarction; Z95.5 Presence of coronary angioplasty implant and graft
CPT/HCPCS: 93005; 99215; G0463